=== PATIENT | female | born 1935 | race Caucasian/White ===

== ENCOUNTER 2018-06-10 10:27 | Inpatient (IN) ==
[2018-06-10] MEDS ORDERED: *HR* FentaNYL (PF) 100 MCG/2 ML VIAL IVP ONE (10:39)
[2018-06-10] MEDS ORDERED: 0.9 % Sodium Chloride 500 ML IVC ONE (10:39)
[2018-06-10] MEDS ORDERED: Ondansetron 4 MG/2 ML VIAL IVP ONE (10:39)
--- NOTE | 2018-06-10 10:43 | Emergency Department Note ---
Disposition Clinical Impression: Femur fracture, Acetabular fracture, Pubic ramus fracture Disposition: Admitted As Inpatient Condition: Fair General Adult HPI - General Chief complaint: ED Fall Stated complaint: ams Time Seen by Provider: 06/10/18 10:27 Source: EMS Limitations: altered mental status Nursing Notes Reviewed: Yes Vital Signs Reviewed: Yes - History of Present Illness Pain Scale: 10 - Related Data Home Medications Medication Instructions Recorded Confirmed Aspirin [Adult Aspirin] 81 mg PO DAILY 04/14/18 06/10/18 Cholecalciferol (Vitamin D3) 2,000 unit PO DAILY 04/14/18 06/10/18 [Vitamin D] Citalopram Hydrobromide 10 mg PO DAILY 04/14/18 06/10/18 [Citalopram HBr] Cyanocobalamin (B-12) [Vitamin B12] 2,000 mcg PO DAILY 04/14/18 06/10/18 Docusate Sodium [Dok] 100 mg PO DAILY 04/14/18 06/10/18 Ondansetron ODT [Zofran ODT] 4 mg PO BID PRN 04/14/18 06/10/18 Polyethylene Glycol 3350 [MiraLAX 1 scoop PO DAILY 04/14/18 06/10/18 Powder Bulk 17.9 Oz] RX: Acetaminophen [Acetaminophen 650 mg PO TID PRN 04/14/18 06/10/18 ER] Previous Rx's Medication Instructions Recorded RX: OxyCODONE/APAP 5/325 [Percocet 1 each PO Q6HR PRN 3 Days #12 04/14/18 5/325 MG] tablet Allergies Allergy/AdvReac Type Severity Reaction Status Date / Time acetaminophen Allergy Mild Nausea Verified 07/23/17 11:20 atorvastatin Allergy Hives Verified 07/23/17 08:28 ceftriaxone Allergy Hives Verified 07/23/17 08:28 codeine Allergy Hypertensio Verified 07/23/17 08:28 n Past Medical History - Past Medical History Medical history: Reports: DVT, dementia, diabetes, GERD, hyperlipidemia, hypertension, myocardial infarction, osteoporosis, pulmonary embolus, TIA Psychiatric history: Reports: no psych history - Social History Smoking Status: Never smoker Smokeless Tobacco Status: No Alcohol use: Reports: none Drug use: Reports: none Physical Exam - General Limitations: altered mental status General appearance: alert Course Vital Signs Temperature 97.5 F L 06/10/18 10:31 Pulse Rate 99 06/10/18 10:31 Respiratory Rate 20 06/10/18 10:31 Blood Pressure 93/49 06/10/18 10:31 O2 Sat by Pulse Oximetry 91 06/10/18 10:31 Temperature 97.5 F L 06/10/18 10:31 Pulse Rate 85 06/10/18 14:05 Respiratory Rate 16 06/10/18 14:05 Blood Pressure 119/60 06/10/18 14:05 O2 Sat by Pulse Oximetry 100 06/10/18 14:05 Oxygen Delivery Oxygen Delivery Nasal Cannula Medical Decision Making - MDM Narrative Medical decision making narrative: Chest X-Ray 06/10/18 10:37 IMPRESSION: 1. Stable chest x-ray with no active pulmonary disease. D/ / Bryn Blakely MD / Bryn Blakely MD Interpreting Provider: Bryn Blakely MD Femur X-Ray 06/10/18 10:37 IMPRESSION: 1. Acute traumatic displaced and overriding fracture of the mid femoral diaphysis. 2. Acute traumatic right pubic symphysis fracture. D/ / Bryn Blakely MD / Bryn Blakely MD Interpreting Provider: Bryn Blakely MD Pelvis X-Ray 06/10/18 10:37 IMPRESSION: 1. Acute traumatic right pubic symphysis fracture with vague lucency involving the acetabulum. I cannot exclude a nondisplaced right acetabular fracture. I would recommend CT scan for further evaluation. D/ / Bryn Blakely MD / Bryn Blakely MD Interpreting Provider: Bryn Blakely MD 1139 hrs.: Waiting on CT of her head and neck. 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 We will speak with orthopedics and hospitalist for admission. Then we will discuss immobilization of the femur. Chest X-Ray 06/10/18 10:37 IMPRESSION: 1. Stable chest x-ray with no active pulmonary disease. D/ / Bryn Blakely MD / Bryn Blakely MD Interpreting Provider: Bryn Blakely MD Femur X-Ray 06/10/18 10:37 IMPRESSION: 1. Acute traumatic displaced and overriding fracture of the mid femoral diaphysis. 2. Acute traumatic right pubic symphysis fracture. D/ / Bryn Blakely MD / Bryn Blakely MD Interpreting Provider: Bryn Blakely MD Pelvis X-Ray 06/10/18 10:37 IMPRESSION: 1. Acute traumatic right pubic symphysis fracture with vague lucency involving the acetabulum. I cannot exclude a nondisplaced right acetabular fracture. I would recommend CT scan for further evaluation. D/ / Bryn Blakely MD / Bryn Blakely MD Interpreting Provider: Bryn Blakely MD 1230 hrs.: Spoke with Dr. Kenney, he said to do a knee immobilizer and the prior to surgery today. Still waiting on head CT and neck x-ray Cervical Spine CT 06/10/18 10:36 IMPRESSION: 1. Patient motion minimally limits evaluation in a few areas. Within this limitation, no acute findings are identified in the cervical spine. 2. Mild to moderate cervical spine degenerative changes. 3. Bony demineralization. D/ / Raymond Salazar MD / Raymond Salazar MD Interpreting Provider: Raymond Salazar MD Head CT 06/10/18 10:36 IMPRESSION: 1. No acute intracranial abnormality. 2. Diffuse cerebral atrophy with chronic small vessel ischemic disease. D/ / Bryn Blakely MD / Bryn Blakely MD Interpreting Provider: Bryn Blakely MD Chest X-Ray 06/10/18 10:37 IMPRESSION: 1. Stable chest x-ray with no active pulmonary disease. D/ / Bryn Blakely MD / Bryn Blakely MD Interpreting Provider: Bryn Blakely MD Femur X-Ray 06/10/18 10:37 IMPRESSION: 1. Acute traumatic displaced and overriding fracture of the mid femoral diaphysis. 2. Acute traumatic right pubic symphysis fracture. D/ / Bryn Blakely MD / Bryn Blakely MD Interpreting Provider: Bryn Blakely MD Pelvis X-Ray 06/10/18 10:37 IMPRESSION: 1. Acute traumatic right pubic symphysis fracture with vague lucency involving the acetabulum. I cannot exclude a nondisplaced right acetabular fracture. I would recommend CT scan for further evaluation. D/ / Bryn Blakely MD / Bryn Blakely MD Interpreting Provider: Bryn Blakely MD 1327 hrs.: Orthopedics is seen the patient a department they are in a determine whether they can get her medically cleared today for surgery if not filled tomorrow. They spoke with family also. Patient's agreement with plan. We will switch from a long leg splint down to the knee immobilizer for comfort. - Lab Data Result diagrams: 06/10/18 10:38 06/10/18 10:38 Lab Results 06/10/18 06/10/18 Range/Units 10:38 10:38 WBC 13.4 H (4.3-11.1) K/mcL RBC 3.40 L (3.82-4.97) M/mcL Hgb 9.5 L (11.5-15.4) g/dL Hct 30.1 L (35.3-44.9) % MCV 88.5 (83.0-100.0) fL MCH 27.9 L (28.0-33.3) pg MCHC 31.6 (31.6-35.5) g/dL RDW 14.8 H (11.5-14.5) % Plt Count 175 (140-400) K/mcL MPV 10.5 (9.4-12.4) fL Immature Gran % 0.9 (0-4) % Seg Neutrophils % 78.7 % Lymphocytes % 12.4 % Monocytes % 7.2 % Eosinophils % 0.4 % Basophils % 0.4 % Neutrophils # 10.5 H (1.6-8.9) K/mcL Lymphocytes # 1.7 (0.6-4.6) K/mcL Monocytes # 1.0 (0.0-1.3) K/mcL Eosinophils # 0.1 (0.0-0.6) K/mcL Basophils # 0.1 (0.0-0.2) K/mcL Sodium 137 (136-145) mEq/L Potassium 4.7 (3.5-5.1) mEq/L Chloride 99 (98-107) mEq/L Carbon Dioxide 26 (23-29) mEq/L BUN 34 H (8-23) mg/dL Creatinine 1.38 H (0.60-1.20) mg/dL Est GFR ( Amer) 44 L (> 60) Est GFR (Non-Af Amer) 36 L (> 60) BUN/Creatinine Ratio 25 (6-26) Glucose 281 H (70-105) mg/dL Calculated Osmolality 302 H (280-300) Calcium 8.9 (8.6-10.3) mg/dL Magnesium 1.8 (1.6-2.6) mg/dL Attestation Statement - Attestation Attestation: This documentation is done with the assistance of Dragon dictation. Despite efforts made to ensure accuracy, there may be inaccuracies in kiss machine operator or spelling and typographical errors. I examined this patient and my medical decision-making was reviewed with the Resident Physician. I agree with the documented findings, disposition and treatment plan as described except to the extent set forth below. Patient seen and evaluated today on arrival with EMS and Dr. Guerrero, I agree with his evaluation and management plan, I supervised the care the patient's stay. Patient lives in assisted living. Medics said she is a to person left though. Waiting on family to confirm that. She fell at the detention last night. She says that she did lose consciousness. They transported her today after she had an episode of emesis. Also complaining of pain in her right thigh. Shows some bruising on her left hand which looks old. We will place an IV give her something for pain and nausea. Check labs. CT head neck x-ray her right femur and most likely she will need admission. We will also speak with forensic social worker here.
[2018-06-10 10:57] LABS: Basophils # 0.1 K/mcL (0.0-0.2); Basophils % 0.4 %; Eosinophils # 0.1 K/mcL (0.0-0.6); Eosinophils % 0.4 %; Hematocrit 30.1 % (35.3-44.9); Hemoglobin 9.5 g/dL (11.5-15.4); Immature Granulocytes % 0.9 % (0-4); Lymphocytes # 1.7 K/mcL (0.6-4.6); Lymphocytes % 12.4 %; Mean Corpuscular HGB Conc 31.6 g/dL (31.6-35.5); Mean Corpuscular Hemoglobin 27.9 pg (28.0-33.3); Mean Corpuscular Volume 88.5 fL (83.0-100.0); Mean Platelet Volume 10.5 fL (9.4-12.4); Monocytes % 7.2 %; Neutrophils # 10.5 K/mcL (1.6-8.9); Platelet Count 175 K/mcL (140-400); Red Cell Distribution Width 14.8 % (11.5-14.5); Segmented Neutrophils % 78.7 %
--- NOTE | 2018-06-10 11:15 | Emergency Department Note ---
Disposition Clinical Impression: Femur fracture Qualifiers: Encounter type: initial encounter Femur location: shaft Fracture type: closed Fracture morphology: unspecified fracture morphology Laterality: right Qualified Code(s): S72.301A - Unspecified fracture of shaft of right femur, initial en counter for closed fracture Acetabular fracture Qualifiers: Encounter type: initial encounter Sublocation of acetabulum: unspecified portion of acetabulum Fracture type: closed Fracture alignment: nondisplaced Laterality: right Qualified Code(s): S32.401A - Unspecified fracture of right acetabulum, initial encounter for closed fracture Pubic ramus fracture Qualifiers: Encounter type: initial encounter Fracture type: closed Laterality: right Qualified Code(s): S32.591A - Other specified fracture of right pubis, initial encounter for closed fracture Disposition: Admitted As Inpatient Condition: Fair Referrals: NONE,PCP [Primary Care Provider] - Forms: ED Satisfaction Letter Time of Disposition: 13:33 Fall HPI - General Chief Complaint: ED Fall Stated Complaint: ams Time Seen by Provider: 06/10/18 10:27 Source: EMS Mode of arrival: EMS Limitations: altered mental status Nursing Notes Reviewed: Yes Vital Signs Reviewed: Yes - History of Present Illness HPI Narrative: 82-year-old female presents to the emergency department via EMS from nursing facility where she is normally bed or chair bound and is the a 2 person assist normally. Yesterday patient apparently fell out of her chair they found her on the ground or unsure how long she had been there. Patient does have DNR CC according to the [facility] but due to the fall and her not acting normal they felt like she needed to come here for evaluation. They did not notice any injuries they noticed that she did vomit so they cleaned her up and called EMS this morning. Patient is normally bedbound and does not normally get up and walks was hard to do a full exam on her dip for that. Patient otherwise not having any complaints including fevers, chills, headache, blurry vision, neck pain, back pain, chest pain, shortness of breath, abdominal pain, changes in balance, pain with urination, pain or tingling going down the arms or legs or generalized weakness. - Related Data Home Medications Medication Instructions Recorded Confirmed Acetaminophen [Acetaminophen ER] 650 mg PO TID PRN 04/14/18 04/14/18 Aspirin [Adult Aspirin] 81 mg PO DAILY 04/14/18 04/14/18 Cholecalciferol (Vitamin D3) 2,000 unit PO DAILY 04/14/18 04/14/18 [Vitamin D] Citalopram Hydrobromide 10 mg PO DAILY 04/14/18 04/14/18 [Citalopram HBr] Cyanocobalamin (B-12) [Vitamin B12] 2,000 mcg PO DAILY 04/14/18 04/14/18 Docusate Sodium [Dok] 100 mg PO DAILY 04/14/18 04/14/18 Ondansetron ODT [Zofran ODT] 4 mg PO BID PRN 04/14/18 04/14/18 Polyethylene Glycol 3350 [MiraLAX 1 scoop PO DAILY 04/14/18 04/14/18 Powder Bulk 17.9 Oz] Previous Rx's Medication Instructions Recorded OxyCODONE/APAP 5/325 [Percocet 1 each PO Q6HR PRN 3 Days #12 04/14/18 5/325 MG] tablet Allergies Allergy/AdvReac Type Severity Reaction Status Date / Time acetaminophen Allergy Mild Nausea Verified 07/23/17 11:20 atorvastatin Allergy Hives Verified 07/23/17 08:28 ceftriaxone Allergy Hives Verified 07/23/17 08:28 codeine Allergy Hypertensio Verified 07/23/17 08:28 n All systems ED: reviewed and negative except as stated. Review of Systems: As Per HPI Fall PMH - Past Medical History Medical history: Reports: DVT, dementia, diabetes, GERD, hyperlipidemia, hypertension, myocardial infarction, osteoporosis, pulmonary embolus, TIA Psychiatric history: Reports: no psych history - Social History Smoking Status: Never smoker Alcohol use: Reports: none Drug use: Reports: none Physical Exam - General Limitations: altered mental status General appearance: alert - Head Head exam: atraumatic, normocephalic, normal inspection - Eye Eye exam: Present: normal appearance, PERRL, EOMI - ENT ENT exam: normal exam, normal oropharynx, mucous membranes moist - Neck Neck exam: Present: normal inspection, full ROM, trachea midline - Chest Chest inspection: Present: normal inspection, symmetric chest wall rise - Respiratory Respiratory exam: Present: normal lung sounds bilaterally - Cardiovascular Cardiovascular exam: Present: regular rate, normal rhythm, normal heart sounds - Abdominal Exam Abdominal exam: Present: soft, Non-Tender, normal bowel sounds. Absent: tenderness, distention, guarding, rebound, rigidity - Extremities Exam Extremities exam: Present: normal inspection, full ROM. Absent: tenderness, pedal edema - Expanded Lower Extremity Exam Hip/Pelvis exam: Present: full ROM, tenderness (Tenderness while palpating the right hip) Upper leg exam: Present: full ROM, deformity (Noticeable midshaft right humerus deformity.) Knee exam: Present: normal inspection, full ROM Lower leg exam: Present: normal inspection, full ROM Ankle exam: Present: normal inspection, full ROM Neurovascular/Tendon exam: Present: normal capillary refill. Absent: pulse deficit, motor deficit, sensory deficit, tendon deficit - Back Exam Back exam: Present: normal inspection, full ROM. Absent: tenderness - Neurological Exam Neurological exam: Present: alert - Expanded Neurological Exam Patient oriented to: Present: person, place, time Coma Scale Eye Opening: Spontaneous Coma Scale Motor Response: Localizes to Pain Coma Scale Verbal Response: Confused Coma Scale Total: 13 - Skin Skin exam: Present: warm, dry, intact, normal color Course Course Narrative: We will get a head CT, cervical neck CT as well as x-rays of the chest pelvis and right femur due to the deformity. Patient does have good pedal pulses bilaterally. We will also get basic labs including CBC, BMP, magnesium, uri nalysis we will place Ramirez catheter. Patient most likely will be admitted due to acute femur fracture. - Consultations Consultation #1: Spoke with the on-call orthopedist Dr. Kenney who said they will see the patient they want patient to be nothing by mouth they will consider taking the patient to the OR to fix her right femur. They did not want a hip CT at this time. They will come and see the patient. They did recommend admission they said patient did not need a splint in this place patient in knee immobilizer and should be fine. Time: 12:38 Vital Signs Temperature 97.5 F L 06/10/18 10:31 Pulse Rate 99 06/10/18 10:31 Respiratory Rate 20 06/10/18 10:31 Blood Pressure 93/49 06/10/18 10:31 O2 Sat by Pulse Oximetry 91 06/10/18 10:31 Temperature 97.5 F L 06/10/18 10:31 Pulse Rate 84 06/10/18 12:48 Respiratory Rate 17 06/10/18 12:48 Blood Pressure 104/50 06/10/18 12:48 O2 Sat by Pulse Oximetry 100 06/10/18 12:48 Oxygen Delivery Oxygen Delivery Nasal Cannula Fall - MDM Narrative Medical decision making narrative: 82-year-old female presents to the emergency department after a fall. Head CT and neck CT came back with no acute abnormalities. Due to the nose with d eformity in the right femur there was a fracture as well as a pubic symphysis as well as possible acetabular fracture. I spoke with orthopedics they said they will take patient to or either today or tomorrow and recommended admission. Did place patient in a knee immobilizer. We attempted to place Ramirez but is difficult due to the pain. We will attempt again prior to patient going to the floor. All other labs were normal. I spoke with the hospitalist Dr. Polo who agreed to admit the patient to their service. Patient is going to be admitted in stable condition. - Medical Records Medical records reviewed: Yes I reviewed the patient's medical records. - Lab Data Lab results reviewed: Yes I reviewed the patient's lab results. Result diagrams: 06/10/18 10:38 06/10/18 10:38 Lab Results 06/10/18 06/10/18 Range/Units 10:38 10:38 WBC 13.4 H (4.3-11.1) K/mcL RBC 3.40 L (3.82-4.97) M/mcL Hgb 9.5 L (11.5-15.4) g/dL Hct 30.1 L (35.3-44.9) % MCV 88.5 (83.0-100.0) fL MCH 27.9 L (28.0-33.3) pg MCHC 31.6 (31.6-35.5) g/dL RDW 14.8 H (11.5-14.5) % Plt Count 175 (140-400) K/mcL MPV 10.5 (9.4-12.4) fL Immature Gran % 0.9 (0-4) % Seg Neutrophils % 78.7 % Lymphocytes % 12.4 % Monocytes % 7.2 % Eosinophils % 0.4 % Basophils % 0.4 % Neutrophils # 10.5 H (1.6-8.9) K/mcL Lymphocytes # 1.7 (0.6-4.6) K/mcL Monocytes # 1.0 (0.0-1.3) K/mcL Eosinophils # 0.1 (0.0-0.6) K/mcL Basophils # 0.1 (0.0-0.2) K/mcL Sodium 137 (136-145) mEq/L Potassium 4.7 (3.5-5.1) mEq/L Chloride 99 (98-107) mEq/L Carbon Dioxide 26 (23-29) mEq/L BUN 34 H (8-23) mg/dL Creatinine 1.38 H (0.60-1.20) mg/dL Est GFR ( Amer) 44 L (> 60) Est GFR (Non-Af Amer) 36 L (> 60) BUN/Creatinine Ratio 25 (6-26) Glucose 281 H (70-105) mg/dL Calculated Osmolality 302 H (280-300) Calcium 8.9 (8.6-10.3) mg/dL Magnesium 1.8 (1.6-2.6) mg/dL - Radiology Data Radiology results reviewed: Yes I reviewed the patient's radiology results. - EKG Data EKG attestation: Yes I reviewed and interpreted this EKG. EKG results narrative: EKG done at 1039 review myself and attending shows sinus rhythm rate 94, KS 198, QRS 112, QTC 5-19. No acute ST changes no acute T-wave changes no other signs of ischemia. No heartstring, hypertrophy, heart block. No WPW/Brugada/HOCM. Otherwise this EKG is unchanged when compared with old one done 07/23/17
[2018-06-10 11:17] LABS: Calcium 8.9 mg/dL (8.6-10.3); Magnesium 1.8 mg/dL (1.6-2.6); Potassium 4.7 mEq/L (3.5-5.1)
[2018-06-10] MEDS ORDERED: 0.9 % Sodium Chloride 500 ML IVC PRN (13:55)
[2018-06-10] MEDS ORDERED: Naloxone 0.4 MG/ML INJ IVP PRN (14:04)
--- NOTE | 2018-06-10 14:15 | Internal Med History&Physical ---
Date of Encounter: 06/10/18 Time of Encounter: 13:40 Internal Medicine - H&P: HPI Chief complaint: fall Admitted From: Long-term Nursing Facility History of present illness: Ms. Childs is a 82 year old female with past medical history of dementia, CVA, CAD s/p CABG in 2004 and PCI few years later, s/p ICD, DM on diet control, presented from the nursing facility after an episode of fall. History is limited due to underlying dementia therefore further history was obtained from patient's daughter at bedside. According to her, patient had unwitnessed fall out of her chair and was found on ground. She is normally bed/chair bound and is 2 person assist normally. Patient can also have reasonable conversation with her daughter but she was slightly more confused than before hence was brought in to the ED They did not notice any obvious injuries but patient started complaining of generalized pain so EMS was called this morning. She is unable to tell me whether she had any prodromal symptoms. Daughter, who saw her last on 06/06, also states that patient had no focal complaints including fever/chills, chest pain, palpitation, SOB, orthopnea, PND, blurring of vision, or focal weakness/numbness. No change in speech or facial droop noted. In the ED, she was afebrile with borderline low BP. Labs showed leukocytosis of 13.4, creatinine 1.38 (baseline around 0.91), and normal electrolytes. Hb 9.5 which is close to her baseline of 10. CXR without acute cardiopulmonary process and EKG showed normal sinus rhythm with known LAFB and prolonged QTc. Other imaging studies showed displaced mid R femoral diaphysis fracture, R pubic symphysis fracture, and ?non-displaced R acetabular fracture. She was given 500ml of NS bolus and admitted for further management with orthopedic consult. Past Med Surg Social Fam HX - Past Medical History Source: obtained from family Medical history: DVT, dementia, diabetes, GERD, hyperlipidemia, hypertension, my ocardial infarction, osteoporosis, pulmonary embolus, TIA Additional medical history: anemia, insomnia Psychiatric history: no psych history - Past Surgical History Surgical History: coronary bypass (CABG) Additional surgical history: multiple bowel surgeries - Social History Smoking Status: Never smoker Smokeless Tobacco Status: No Alcohol use: none Drug use: none - Family History Mother Living Status: (unable to obtain due to mental status) Internal Medicine - H&P: Meds Acetaminophen [Acetaminophen ER] 650 mg PO TID PRN 04/14/18 [History] Aspirin [Adult Aspirin] 81 mg PO DAILY 04/14/18 [History] Cholecalciferol (Vitamin D3) [Vitamin D] 2,000 unit PO DAILY 04/14/18 [History] Citalopram Hydrobromide [Citalopram HBr] 10 mg PO DAILY 04/14/18 [History] Cyanocobalamin (B-12) [Vitamin B12] 2,000 mcg PO DAILY 04/14/18 [History] Docusate Sodium [Dok] 100 mg PO DAILY 04/14/18 [History] Ondansetron ODT [Zofran ODT] 4 mg PO BID PRN 04/14/18 [History] OxyCODONE/APAP 5/325 [Percocet 5/325 MG] 1 each PO Q6HR PRN 3 Days #12 tablet 04/14/18 [Rx] Polyethylene Glycol 3350 [MiraLAX Powder Bulk 17.9 Oz] 1 scoop PO DAILY 04/14/18 [History] Allergy/AdvReac Type Severity Reaction Status Date / Time acetaminophen Allergy Mild Nausea Verified 07/23/17 11:20 atorvastatin Allergy Hives Verified 07/23/17 08:28 ceftriaxone Allergy Hives Verified 07/23/17 08:28 codeine Allergy Hypertensio Verified 07/23/17 08:28 n ROS unobtainable: due to mental status All Systems PM: A 10-system review of systems was performed and is negative for pertinent findings except as documented above in the HPI. - Constitutional Vitals: Temp Pulse Resp BP Pulse Ox 97.5 F L 84 17 104/50 100 06/10/18 10:31 06/10/18 12:48 06/10/18 12:48 06/10/18 12:48 06/10/18 12:48 Exam: General: Alert and oriented to self but to place and time, not in acute distress. HEENT:EOM, pupils equal, round and reactive. Cardiovascular:Normal S1 & S2, No JVD. Pulse regular. Lungs: clear to auscultation, no wheezes/rales Abdomen:Soft, non-tender, no rigidity. Extremities: R groin and mid thigh tender on palpation, unable to appreciate obvious deformity. Neurovascular intact distally Neurological: grossly nonfocal Skin:Normal color, no rash, no lesions. Pulses:Carotid and radial pulses normal +2. Rest of the physical exam is non contributory Internal Med - H&P Results - Labs CBC & Chem 7: 06/10/18 10:38 06/10/18 10:38 Labs: Short CBC 06/10/18 Range/Units 10:38 WBC 13.4 H (4.3-11.1) K/mcL Hgb 9.5 L (11.5-15.4) g/dL Hct 30.1 L (35.3-44.9) % Plt Count 175 (140-400) K/mcL Neutrophils # 10.5 H (1.6-8.9) K/mcL BMP 06/10/18 10:38 Sodium 137 Potassium 4.7 Chloride 99 Carbon Dioxide 26 BUN 34 H Creatinine 1.38 H Glucose 281 H Calcium 8.9 - Impressions ITS Impressions Cervical Spine CT 06/10/18 10:36 IMPRESSION: 1. Patient motion minimally limits evaluation in a few areas. Within this limitation, no acute findings are identified in the cervical spine. 2. Mild to moderate cervical spine degenerative changes. 3. Bony demineralization. D/ / Raymond Salazar MD / Raymond Salazar MD Interpreting Provider: Raymond Salazar MD Head CT 06/10/18 10:36 IMPRESSION: 1. No acute intracranial abnormality. 2. Diffuse cerebral atrophy with chronic small vessel ischemic disease. D/ / Bryn Blakely MD / Bryn Blakely MD Interpreting Provider: Bryn Blakely MD Chest X-Ray 06/10/18 10:37 IMPRESSION: 1. Stable chest x-ray with no active pulmonary disease. D/ / Bryn Blakely MD / Bryn Blakely MD Interpreting Provider: Bryn Blakely MD Femur X-Ray 06/10/18 10:37 IMPRESSION: 1. Acute traumatic displaced and overriding fracture of the mid femoral diaphysis. 2. Acute traumatic right pubic symphysis fracture. D/ / Bryn Blakely MD / Bryn Blakely MD Interpreting Provider: Bryn Blakely MD Pelvis X-Ray 06/10/18 10:37 IMPRESSION: 1. Acute traumatic right pubic symphysis fracture with vague lucency involving the acetabulum. I cannot exclude a nondisplaced right acetabular fracture. I would recommend CT scan for further evaluation. D/ / Bryn Blakely MD / Bryn Blakely MD Interpreting Provider: Bryn Blakely MD - Assessment and plan (1) Femur fracture Current Visit: Yes Status: Acute Assessment and plan: CT finding as above, neurovascularly intact distally for ortho eval, probably require surgical intervention soon pre-op eval as below Qualifiers: Encounter type: initial encounter Femur location: shaft Fracture type: closed Fracture morphology: unspecified fracture morphology Laterality: right Qualified Code(s): S72.301A - Unspecified fracture of shaft of right femur, initial encounter for closed fracture (2) Pre-op evaluation Current Visit: Yes Status: Acute Assessment and plan: patient does not have any signs and symptoms suggestive of ACS, decompensated heart failure, or malignant arrhythmia (granted hx is somewhat limited) has history of ischemic cardiomyopathy with ?ICD insertion. No echo on file RCRI 2, risk of MACE 6.6%. Unable to determine METS moderate risk pt for moderate risk op Pt also has NICOLAS and leukocytosis with AMS concerning for potential infection would be reasonable to investigate and treat the above while obtaining echocardiogram to establish baseline cardiac function prior to op IVF for NICOLAS CXR did not show any acute cardiopulmonary process, would obtain UA to rule out UTI echocardiogram, if abnormal, will consult cardiology (3) Pubic ramus fracture Current Visit: Yes Status: Acute Assessment and plan: per ortho Qualifiers: Encounter type: initial encounter Fracture type: closed Laterality: right Qualified Code(s): S32.591A - Other specified fracture of right pubis, initial encounter for closed fracture (4) Acetabular fracture Current Visit: Yes Status: Acute Assessment and plan: per ortho Qualifiers: Encounter type: initial encounter Sublocation of acetabulum: unspecified portion of acetabulum Fracture type: closed Fracture alignment: nondisplaced Laterality: right Qualified Code(s): S32.401A - Unspecified fracture of right acetabulum, initial encounter for closed fracture (5) NICOLAS (acute kidney injury) Current Visit: Yes Status: Acute Assessment and plan: Cr 1.38, baseline 0.9-1.0 check CPK given history of fall IVF Urinalysis (6) CAD (coronary artery disease) Current Visit: Yes Status: Chronic Assessment and plan: resume home meds, intolerant to statin but unsure why patient is not on bb echo as above Qualifiers: Coronary Disease-Associated Artery/Lesion type: bypass graft [place] vs. transplanted heart: [place] heart Associated angina: angina presence unspecified Qualified Code(s): I25.810 - Atherosclerosis of coronary artery bypass graft(s) without angina pectoris (7) Leukocytosis Current Visit: Yes Status: Acute Assessment and plan: can be reactive from fall and fracture but with change in mental status, concerning for infection CXR as above urinalysis, will treat accordingly if +ve Qualifiers: Leukocytosis type: unspecified Qualified Code(s): D72.829 - Elevated white blood cell count, unspecified (8) DVT prophylaxis Current Visit: Yes Status: Acute Assessment and plan: SQ heparin - Time Spent With Patient Total time spent is greater than 50% in coordination of care (as documented) at patient's floor/unit and/or counseling patient:
--- NOTE | 2018-06-10 14:26 | Orthopedic Consult Note ---
Date of Encounter: 06/10/18 Time of Encounter: 13:00 Assessment and Plan (1) Femur fracture Current Visit: Yes Status: Acute Patient is a long-term resident at [facility], and recently became 2 person assist, [id number] mobility only secondary to increase in fall risk and decreased cognitive abilities. Both conservative and surgical options discussed with jasmin mukesh and her POA - Maribell. With conservative management, patient will be completely non-ambulatory for unknown amount of time, have continued pain, and because of instability of fracture, she is at risk for further migration of fracture with the potential for an open fracture. Surgical management, at this time is recommended secondary to instability of fracture, pain control, and allow for better mangement while in the bed-bound status. Patient will be high risk from anesthesia standpoint, and further cognitive declined discussed with the POA. We will plan to perform a Right Femur IM nailing with on 06/11/18, as this will be the least invasive surgical option for the patient. Cardio consulted secondary to high cardiac risks involved. Will appreciate their input, Echocardiogram ordered. Anesthesia consulted. Patient to be admitted to hospitalist service, for further pre-operative optimization and risk stratification. Pain management needed, Place in knee immobilizer, no knee motion. ICE frequently. Order CBC, BMP, PT/INR. She has new NICOLAS as well, to be followed by hospitalist. NWB. Needs anderson catheter placed. Consent reviewed and discussed with the patient and POA. Consent signed. Qualifiers: Encounter type: initial encounter Femur location: shaft Fracture type: closed Fracture morphology: unspecified fracture morphology Laterality: right Qualified Code(s): S72.301A - Unspecified fracture of shaft of right femur, initial encounter for closed fracture (2) Acetabular fracture Current Visit: Yes Status: Acute Discussed and reviewed imaging with - plan to continue to monitor. No CT at this time, as it will not change current treatment plan per Qualifiers: Encounter type: initial encounter Sublocation of acetabulum: unspecified portion of acetabulum Fracture type: closed Fracture alignment: nondisplaced Laterality: right Qualified Code(s): S32.401A - Unspecified fracture of right acetabulum, initial encounter for closed fracture (3) Pubic ramus fracture Current Visit: Yes Status: Acute Discussed and reviewed imaging with Will plan to continue with conservative management. Plan to follow precautions for femur fracture. Qualifiers: Encounter type: initial encounter Fracture type: closed Laterality: right Qualified Code(s): S32.591A - Other specified fracture of right pubis, initial encounter for closed fracture History of Present Illness Chief complaint: Fall from wheelchair, Right Femur Fracture HPI: Ms. Childs is a 82 year old female, with a history of DVT, dementia, HTN, MN, PE, TIA, CAD with open heart surgery, presented to [facility] ED from nursing faci lity after a unwitnessed fall that occured last night. Poor historian, history obtained from POA and records. Patient is a retirement resident in assisted living facility. Patient was put back to bed after fall, and nursing noted this AM her pain was worse. XRAYS of right lower extremity revealed: Mid-shaft, displaced femur fracture, pubic symphysis fracture, possible nondisplaced acetabular fracture. Patient is difficult to arouse and drowsy, likely from pain medication. Most of her history was obtained from records, and POA - Daughter Maribell. Pain is controlled currently with pain medication, worsens with any movement of the hip, knee or ankle. Patient admits to radiation of pain down entirety of lower leg. She denies N/T. She denies LOC, unclear if she hit her head. She had a previous Left hip fracture in 2013 with IM nailing, and has been ambulating minimally with walker, and wheelchair since then. She had been transferring herself from her chair to her wheelchair, but in April, she started having increase in her fall frequency. She is now a 2 person assist, [id number] mobility only, due to her high fall risk Leg appears shortened and rotated. Swelling to anterior thigh noted. Abrasions to knee minimal. No indication for open fracture. No calf tenderness. ROM limited. NV intact. Place in knee immobilizer. Pain management needed. DVT prophylaxis. Cervical Spine CT 06/10/18 10:36 IMPRESSION: 1. Patient motion minimally limits evaluation in a few areas. Within this limitation, no acute findings are identified in the cervical spine. 2. Mild to moderate cervical spine degenerative changes. 3. Bony demineralization. D/ / Raymond Salazar MD / Raymond Salazar MD Interpreting Provider: Raymond Salazar MD Head CT 06/10/18 10:36 IMPRESSION: 1. No acute intracranial abnormality. 2. Diffuse cerebral atrophy with chronic small vessel ischemic disease. D/ / Bryn Blakely MD / Bryn Blakely MD Interpreting Provider: Bryn Blakely MD Chest X-Ray 06/10/18 10:37 IMPRESSION: 1. Stable chest x-ray with no active pulmonary disease. D/ / Bryn Blakely MD / Bryn Blakely MD Interpreting Provider: Bryn Blakely MD Femur X-Ray 06/10/18 10:37 IMPRESSION: 1. Acute traumatic displaced and overriding fracture of the mid femoral diaphysis. 2. Acute traumatic right pubic symphysis fracture. D/ / Bryn Blakely MD / Bryn Blakely MD Interpreting Provider: Bryn Blakely MD Pelvis X-Ray 06/10/18 10:37 IMPRESSION: 1. Acute traumatic right pubic symphysis fracture with vague lucency involving the acetabulum. I cannot exclude a nondisplaced right acetabular fracture. I would recommend CT scan for further evaluation. D/ / Bryn Blakely MD / Bryn Blakely MD Interpreting Provider: Bryn Blakely MD Patient is a long-term resident at [facility], and recently became 2 person assist, [id number] mobility only secondary to increase in fall risk and decreased cognitive abilities. Both conservative and surgical options discussed with patient and her POA - Maribell. With conservative management, patient will be completely non-ambulatory for unknown amount of time, have continued pain, and because of instability of fracture, she is at risk for further migration of fracture with the potential for an open fracture. Surgical management, at this time is recommended secondary to instability of fracture, pain control, and allow for better mangement while in the bed-bound status. Patient will be high risk from anesthesia standpoint, and further cognitive declined discussed with the POA. We will plan to perform a Right Femur IM nailing with on 06/11/18, as this will be the least invasive surgical option for the patient. Cardio consulted secondary to high cardiac risks involved. Will appreciate their input, Echocardiogram ordered. Anesthesia consulted. Patient to be admitted to hospitalist service, for further pre-operative optimization and risk stratification. Pain management needed, Place in knee immobilizer, no knee motion. ICE frequently. Order CBC, BMP, PT/INR. She has new NICOLAS as well, to be followed by hospitalist. NWB. Needs anderson catheter placed. Consent reviewed and discussed with the patient and POA. Consent signed. Past Med Surg Social Fam HX - Past Medical History Medical history: DVT, dementia, diabetes, GERD, hyperlipidemia, hypertension, myocardial infarction, osteoporosis, pulmonary embolus, TIA Additional medical history: anemia, insomnia, Psychiatric history: no psych history - Past Surgical History Additional surgical history: multiple bowel - Social History Smoking Status: Never smoker Smokeless Tobacco Status: No Alcohol use: none Drug use: none - Family History Mother Living Status: Medications and Allergies Acetaminophen [Acetaminophen ER] 650 mg PO TID PRN 04/14/18 [History] Aspirin [Adult Aspirin] 81 mg PO DAILY 04/14/18 [History] Cholecalciferol (Vitamin D3) [Vitamin D] 2,000 unit PO DAILY 04/14/18 [History] Citalopram Hydrobromide [Citalopram HBr] 10 mg PO DAILY 04/14/18 [History] Cyanocobalamin (B-12) [Vitamin B12] 2,000 mcg PO DAILY 04/14/18 [History] Docusate Sodium [Dok] 100 mg PO DAILY 04/14/18 [History] Ondansetron ODT [Zofran ODT] 4 mg PO BID PRN 04/14/18 [History] OxyCODONE/APAP 5/325 [Percocet 5/325 MG] 1 each PO Q6HR PRN 3 Days #12 tablet [Rx] Polyethylene Glycol 3350 [MiraLAX Powder Bulk 17.9 Oz] 1 scoop PO DAILY 04/14/18 [History] Allergy/AdvReac Type Severity Reaction Status Date / Time acetaminophen Allergy Mild Nausea Verified 07/23/17 11:20 atorvastatin Allergy Hives Verified 07/23/17 08:28 ceftriaxone Allergy Hives Verified 07/23/17 08:28 codeine Allergy Hypertensio Verified 07/23/17 08:28 n ROS unobtainable: due to mental status All Systems Reviewed: The remainder of the systems were reviewed and are negative - Cardiovascular Cardiovascular: as per HPI - Respiratory Respiratory: as per HPI - Musculoskeletal Musculoskeletal: as per HPI Physical Exam - Constitutional Vitals: Temp Pulse Resp BP Pulse Ox 97.5 F L 84 17 104/50 100 06/10/18 10:31 06/10/18 12:48 06/10/18 12:48 06/10/18 12:48 06/10/18 12:48 General appearance IM: A&O X 1, mild distress, pleasant, thin - Fracture right femur Appearance: swelling Compartments: soft Distal extremity neurovascularly intact: Yes Proximal joint involvement: Yes Distal joint involvement: No Results - Labs Result Diagrams: 06/11/18 05:35 06/11/18 05:35 Labs: Abnormal lab results WBC 13.4 K/mcL (4.3-11.1) H 06/10/18 10:38 RBC 3.40 M/mcL (3.82-4.97) L 06/10/18 10:38 Hgb 9.5 g/dL (11.5-15.4) L 06/10/18 10:38 Hct 30.1 % (35.3-44.9) L 06/10/18 10:38 MCH 27.9 pg (28.0-33.3) L 06/10/18 10:38 RDW 14.8 % (11.5-14.5) H 06/10/18 10:38 Neutrophils # 10.5 K/mcL (1.6-8.9) H 06/10/18 10:38 BUN 34 mg/dL (8-23) H 06/10/18 10:38 Creatinine 1.38 mg/dL (0.60-1.20) H 06/10/18 10:38 Est GFR ( Amer) 44 (> 60) L 06/10/18 10:38 Est GFR (Non-Af Amer) 36 (> 60) L 06/10/18 10:38 Glucose 281 mg/dL (70-105) H 06/10/18 10:38 Calculated Osmolality 302 (280-300) H 06/10/18 10:38 H & H 06/10/18 Range/Units 10:38 Hgb 9.5 L (11.5-15.4) g/dL Hct 30.1 L (35.3-44.9) % All other labs normal. - Diagnostic results Hip x-ray: report reviewed, image reviewed Knee x-ray: report reviewed, image reviewed Cervical AP/lateral x-ray: report reviewed, image reviewed CT scan - cervical: report reviewed, image reviewed Consult Discharge Plan - Plan Referrals: NONE,PCP [Primary Care Provider] -
[2018-06-10] MEDS: *HR* Heparin 5,000 UNIT/ML VIAL SQ SCH (17:21)
[2018-06-10] MEDS: 0.9 % Sodium Chloride 1,000 ML IVC SCH (17:22)
[2018-06-10] MEDS: OXYCODONE Oral CONC 10 MG/0.5 ML ORAL.SYG SL PRN ×2 (17:23→22:29)
[2018-06-10] MEDS ORDERED: Perflutren Lipid Microsphere 1.3 ML in 0.9 % Sodium Chloride 8.7 ML IVP ONE (18:18)
--- NOTE | 2018-06-10 22:19 | Anesthesia Evaluation PreOp ---
Date of Encounter: 06/10/18 Time of Encounter: 22:17 - Past History Planned Operation: RIGHT FEMUS IM NAIL Cardiac History: [place], HTN, Hyperlipidemia, Arrhythmia (BIFASCIULAR BLOCK, COMLETE HEART BLOCK, SYNCOPY), Cardiac Surgery (CABG 2004), Cardiac Stent, Pacemaker/ICD (2015: [employer] PACEMAKER, DUAL CHAMBER, AAIR,) RECEIVER BULK SYSTEM History: Other (DEMENTIA, BED/CHAIR BOUND) Other Medical History: Renal (NICOLAS), Diabetes Type II (DIET CONTROLLED), GERD, Other (ANEMIA, UNWITTENESED FALL, RIGHT FEMUR SHAFT FX, RIGHT SYMPHYSIS PUBIS FX , ? RIGHT ACETABULAR FX) Alcohol Use: none Drug use: none Medications and Allergies Acetaminophen [Acetaminophen ER] 650 mg PO TID PRN 04/14/18 [History] Aspirin [Adult Aspirin] 81 mg PO DAILY 04/14/18 [History] Cholecalciferol (Vitamin D3) [Vitamin D] 2,000 unit PO DAILY 04/14/18 [History] Citalopram Hydrobromide [Citalopram HBr] 10 mg PO DAILY 04/14/18 [History] Cyanocobalamin (B-12) [Vitamin B12] 2,000 mcg PO DAILY 04/14/18 [History] Docusate Sodium [Dok] 100 mg PO DAILY 04/14/18 [History] Ondansetron ODT [Zofran ODT] 4 mg PO BID PRN 04/14/18 [History] OxyCODONE/APAP 5/325 [Percocet 5/325 MG] 1 each PO Q6HR PRN 3 Days #12 tablet 04/14/18 [Rx] Polyethylene Glycol 3350 [MiraLAX Powder Bulk 17.9 Oz] 1 scoop PO DAILY 04/14/18 [History] Allergy/AdvReac Type Severity Reaction Status Date / Time acetaminophen Allergy Mild Nausea Verified 07/23/17 11:20 atorvastatin Allergy Hives Verified 07/23/17 08:28 ceftriaxone Allergy Hives Verified 07/23/17 08:28 codeine Allergy Hypertensio Verified 07/23/17 08:28 n - Meds/Allergy Pre-op Review Medications Reviewed: Yes Allergies Reviewed: Yes Beta Blockers on Current Med List: No Anesthesia Results - Labs 06/10/18 10:38 06/10/18 10:38 Laboratory Tests 06/10/18 10:38 Creatinine 1.38 H Est GFR (Non-Af Amer) 36 L Calcium 8.9 Magnesium 1.8 - Imaging Additional studies: 2013 STRESS TEST: Perfusion imaging was positive for ischemia. There is a medium sized partially fixed but overall reversible perfusion defect which is moderate in severity in the basal inferolateral segment wall suggestive of ischemia. Pharmacologic ECG was non diagnostic for ischemia. Patient had no chest pain with stress. Normal hemodynamic response. No arrhythmias noted with stress. Gated EF = 76%. The LV is not dilated. There is no evidence of TID. TID ratio 0.88. 09/2013 [facility] - See Report Anesthesia Exam Vital Signs/O2 Sat/Glucose, Most Recent Temp Pulse Resp BP Pulse Ox 97.4 F L 81 14 92/56 96 06/10/18 19:39 06/10/18 19:39 06/10/18 19:39 06/10/18 22:09 06/10/18 20:04 Blood Glucose* 258 Weight: 52 kg - BMI 23 NPO (# of Hours): NPO >MN - HEENT Mallampati: I Teeth: Missing Oral Opening: Greater than 3 - RECEIVER BULK SYSTEM LOC: Confused, Disoriented - Cardiac Rhythm: Regular - Pulmonary Breath Sounds: bilateral Clear Respiratory Effort: Symmetrical Anesthesia Assess/Plan ASA Score: 4 Anes Supervising Prov Stmt: PATIENT WITH DEMENTIA. HALF-WAY. HISTORY FROM CHART REVIEW. ATTEMPTED, BUT UNABLE TO GET HOLD OF DAUGHTER. NEED PACEMAKER INTERROGATION.
[2018-06-11 02:34] LABS: Bilirubin,Urine Small (Negative); Blood,Urine Negative (Negative); Clarity,Urine Cloudy (Clear); Color,Urine Yellow (Yellow); Glucose,Urine (UA) Normal (Normal); Ketones,Urine Negative (Negative); Leukocyte Esterase,Urine Negative (Negative); Nitrite,Urine Negative (Negative); PH,Urine 5.5 pH Units (5.0-8.0); Protein,Urine 30 mg/dL (Neg-Trace); Specific Gravity,Urine 1.018 (1.010-1.025); Urobilinogen,Urine Normal (Normal)
[2018-06-11 02:36] LABS: Bacteria,Urine Moderate per hpf (None-Few); Hyaline Casts,Urine Few per lpf (None-Few); Squamous Epithelial Cell,Urine Many per lpf (None-Few)
--- NOTE | 2018-06-11 02:39 | Electrocardiograph Report ---
[facility] [employer] Test Date: 2018-06-10 Pat Name: Sanjuanita Childs Department: [id number] Room: 3A12 Gender: F [employer] Ref[employer] Supervisor: : [id number] Requested By: Antonio Guerrero Order Number: [id number] Reading MD: Robin Kirk Measurements Intervals [place] Rate: 94 P: 54 FL: 198 QRS: -59 QRSD: 112 T: 10 QT: 415 QTc: 519 Interpretive Statements Sinus rhythm Left anterior fascicular block Electronically Signed On 06-11-2018 2:37:49 EST by Robin Kirk
[2018-06-11 02:41] LABS: Yeast,Urine Many per hpf (None Seen)
[2018-06-11] MEDS: 0.9 % Sodium Chloride 1,000 ML IVC SCH (05:01)
[2018-06-11] MEDS: *HR* Heparin 5,000 UNIT/ML VIAL SQ SCH ×2 (05:03→19:07)
--- NOTE | 2018-06-11 06:24 | Orthopedics Progress Note ---
Date of Encounter: 06/11/18 Time of Encounter: 06:23 Subjective Interval history: Patient seen this morning displaced right femur fracture issues and non- ambulator but fracture displaced anteriorly concern for soft tissue damage. Plan for right femur open reduction intramedullary nail fixation. Objective Vital signs: Vital Signs Temp Pulse Resp BP Pulse Ox 06/11/18 03:55 98.7 F 83 16 97/58 99 06/10/18 23:35 98.4 F 83 16 111/65 100 06/10/18 22:09 92/56 06/10/18 20:44 90/53 06/10/18 20:04 96 06/10/18 19:39 97.4 F L 81 14 77/44 96 06/10/18 17:36 96 06/10/18 14:05 85 16 119/60 100 06/10/18 12:48 84 17 104/50 100 06/10/18 11:42 91 24 103/60 100 06/10/18 10:31 97.5 F L 99 20 93/49 91 Intake and Output 06/10/18 06/10/18 06/11/18 15:59 23:59 07:59 Intake Total 500 / 500 500 / 500 1000 / 1000 Output Total 0 / 0 150 / 150 Balance 500 / 500 500 / 500 850 / 850 Intake: IV Fluids 500 / 500 500 / 500 1000 / 1000 0.9 % Sodium Chloride 1,000 ML 1000 / 1000 @ 75 mls/hr IVC .[id number] [place] Rx #:[id number] 0.9 % Sodium Chloride 500 ML @ 500 / 500 500 / 500 1000 mls/hr IVC .Q30M PRN Rx#: [id number] Oral 0 / 0 0 / 0 Output: Urine 0 / 0 Catheter 0 / 0 150 / 150 Urethral (Ramirez) 100 / 100 Other: Meal Dinner Percent of Meal Consumed 20% # Urine Diapers 1 Weight 52.277 kg 56.7 kg Blood Glucose* 258 123 Patient Weight 06/11/18 23:59 Weight 56.7 kg - Labs CBC & BMP: 06/10/18 10:38 06/10/18 10:38 Labs: Abnormal lab results WBC 13.4 K/mcL (4.3-11.1) H 06/10/18 10:38 RBC 3.40 M/mcL (3.82-4.97) L 06/10/18 10:38 Hgb 9.5 g/dL (11.5-15.4) L 06/10/18 10:38 Hct 30.1 % (35.3-44.9) L 06/10/18 10:38 MCH 27.9 pg (28.0-33.3) L 06/10/18 10:38 RDW 14.8 % (11.5-14.5) H 06/10/18 10:38 Neutrophils # 10.5 K/mcL (1.6-8.9) H 06/10/18 10:38 BUN 34 mg/dL (8-23) H 06/10/18 10:38 Creatinine 1.38 mg/dL (0.60-1.20) H 06/10/18 10:38 Est GFR ( Amer) 44 (> 60) L 06/10/18 10:38 Est GFR (Non-Af Amer) 36 (> 60) L 06/10/18 10:38 Glucose 281 mg/dL (70-105) H 06/10/18 10:38 POC Glucose 258 mg/dL (70-99) H 06/10/18 10:33 Calculated Osmolality 302 (280-300) H 06/10/18 10:38 Creatine Kinase 454 Units/L (30-223) H 06/10/18 10:38 Urine Clarity Cloudy (Clear) A 06/11/18 02:15 Urine Protein 30 mg/dL (Neg-Trace) H 06/11/18 02:15 Urine Bilirubin Small (Negative) H 06/11/18 02:15 Urine Microscopic RBC 3-5 per hpf (0-3) H 06/11/18 02:15 Urine Microscopic WBC 5-15 per hpf (0-3) H 06/11/18 02:15 Ur Squamous Epith Cells Many per lpf (None-Few) H 06/11/18 02:15 Urine Bacteria Moderate per hpf (None-Few) H 06/11/18 02:15 Urine Yeast Many per hpf (None Seen) H 06/11/18 02:15 Consult Discharge Plan - Plan Referrals: NONE,PCP [Primary Care Provider] -
[2018-06-11 06:44] LABS: INR 1.1; Prothrombin Time 12.3 Seconds (9.4-12.1)
[2018-06-11 06:48] LABS: Basophils % 0.4 %; Eosinophils # 0.3 K/mcL (0.0-0.6); Eosinophils % 3.8 %; Hematocrit 24.1 % (35.3-44.9); Immature Granulocytes % 0.4 % (0-4); Lymphocytes # 1.7 K/mcL (0.6-4.6); Lymphocytes % 22.6 %; Mean Corpuscular HGB Conc 31.1 g/dL (31.6-35.5); Mean Corpuscular Hemoglobin 28.4 pg (28.0-33.3); Mean Corpuscular Volume 91.3 fL (83.0-100.0); Monocytes # 0.7 K/mcL (0.0-1.3); Monocytes % 9.3 %; Neutrophils # 4.7 K/mcL (1.6-8.9); Platelet Count 125 K/mcL (140-400); Red Blood Count 2.64 M/mcL (3.82-4.97); Segmented Neutrophils % 63.5 %
[2018-06-11 06:56] LABS: Magnesium 1.8 mg/dL (1.6-2.6); Potassium 4.5 mEq/L (3.5-5.1)
[2018-06-11 07:07] LABS: Hemoglobin 7.5 g/dL (11.5-15.4)
[2018-06-11] MEDS ORDERED: Aspirin Enteric Coated 81 MG Tablet PO SCH (09:00)
[2018-06-11] MEDS ORDERED: Cyanocobalamin (B-12) 1,000 MCG TABLET PO SCH (09:00)
[2018-06-11] MEDS ORDERED: Cholecalciferol (D-3) 1,000 UNIT TABLET PO SCH (09:00)
--- NOTE | 2018-06-11 09:17 | Internal Med Progress Note ---
Hospitalist Progress Note - Encounter Date of Encounter: 06/11/18 Time of Encounter: 09:14 - Subjective Interval History: Patient seen and examined this morning. No acute overnight events. BP on lower end. Patient is confused only oriented to self. Cannot offer coherent complain. Occasionally tearful. - Exam Vitals: Temp Pulse Resp BP Pulse Ox 98.0 F 72 15 95/56 100 06/11/18 07:18 06/11/18 07:18 06/11/18 07:18 06/11/18 07:18 06/11/18 07:18 Exam: General: Alert and oriented to self but to place and time, not in acute distress. Cardiovascular:Normal S1 & S2, No JVD. Pulse regular. Lungs: clear to auscultation, no wheezes/rales Abdomen:Soft, non-tender, BS present Extremities: R groin and mid thigh tender on palpation, unable to appreciate obvious deformity. Neurovascular intact distally Neurological: grossly nonfocal Pulses:Carotid and radial pulses normal +2. Pysch: confused - Assessment and Plan (1) Femur fracture Current Visit: Yes Status: Acute (2) Acetabular fracture Current Visit: Yes Status: Acute (3) Pubic ramus fracture Current Visit: Yes Status: Acute (4) CAD (coronary artery disease) Current Visit: Yes Status: Chronic (5) NICOLAS (acute kidney injury) Current Visit: Yes Status: Acute (6) Leukocytosis Current Visit: Yes Status: Acute (7) Pre-op evaluation Current Visit: Yes Status: Acute (8) DVT prophylaxis Current Visit: Yes Status: Acute - Summary of Assessment and Plan Summary of Assessment and Plan: Femur fracture/Pubic ramus/acetabular fracture - CT finding as above, neurovascularly intact distally - Plan for right femur open reduction intramedullary nail fixation per orthopedics Pre-op evaluation - patient does not have any signs and symptoms suggestive of ACS, decompensated heart failure, or arrhythmia. - History of ischemic cardiomyopathy with ICD insertion. - RCRI 2, risk of MACE 6.6%. Unable to determine METS - moderate risk pt for moderate risk op - c/u ECHO TTE. Cardiology consulted Anemia - admitted with 9.5(around baseline this year). now 7.5. Likely related to rehydration - Monitor - Type and screen NICOLAS - Cr 1.38, baseline 0.9-1.0 - elevated CK of 454 - Likely prerenal vs toxin mediated - Improving with IVF. - c/w IVF. will give 500 cc of Bolus. CAD - resume home meds, intolerant to statin but unsure why patient is not on bb echo as above Leukocytosis - Likely reactive - now resolved - CXR unremarkable - Urinalysis abnormal but poor sample. - Will hold of antibiotics for now. DVT prophylaxis - c/w SQ heparin - Time Spent with Patient Total time spent is greater than 50% in coordination of care (as documented) at patient's floor/unit and/or counseling patient: Internal Medicine: Result - Labs CBC & Chem 7: 06/11/18 05:35 06/11/18 05:35 Labs: Short CBC 06/10/18 06/11/18 Range/Units 10:38 05:35 WBC 13.4 H 7.4 (4.3-11.1) K/mcL Hgb 9.5 L 7.5 L D (11.5-15.4) g/dL Hct 30.1 L 24.1 L (35.3-44.9) % Plt Count 175 125 L (140-400) K/mcL Neutrophils # 10.5 H 4.7 (1.6-8.9) K/mcL BMP 06/10/18 06/11/18 10:38 05:35 Sodium 137 139 Potassium 4.7 4.5 Chloride 99 106 Carbon Dioxide 26 28 BUN 34 H 35 H Creatinine 1.38 H 1.25 H Glucose 281 H 124 H Calcium 8.9 8.0 L Urine 06/11/18 Range/Units 02:15 Urine Color Yellow (Yellow) Urine Clarity Cloudy A (Clear) Urine pH 5.5 (5.0-8.0) pH Units Ur Specific [place] 1.018 (1.010-1.025) Urine Protein 30 H (Neg-Trace) mg/dL Urine Glucose (UA) Normal (Normal) mg/dL - ABG Interpretation ABG results: PT/INR, D-dimer PT 12.3 Seconds (9.4-12.1) H 06/11/18 05:35 - Impressions Impressions Cervical Spine CT 06/10/18 10:36 IMPRESSION: 1. Patient motion minimally limits evaluation in a few areas. Within this limitation, no acute findings are identified in the cervical spine. 2. Mild to moderate cervical spine degenerative changes. 3. Bony demineralization. D/ / Raymond Salazar MD / Raymond Salazar MD Interpreting Provider: Raymond Salazar MD Head CT 06/10/18 10:36 IMPRESSION: 1. No acute intracranial abnormality. 2. Diffuse cerebral atrophy with chronic small vessel ischemic disease. D/ / Bryn Blakely MD / Bryn Blakely MD Interpreting Provider: Bryn Blakely MD Chest X-Ray 06/10/18 10:37 IMPRESSION: 1. Stable chest x-ray with no active pulmonary disease. D/ / Bryn Blakely MD / Bryn Blakely MD Interpreting Provider: Bryn Blakely MD Femur X-Ray 06/10/18 10:37 IMPRESSION: 1. Acute traumatic displaced and overriding fracture of the mid femoral diaphysis. 2. Acute traumatic right pubic symphysis fracture. D/ / Bryn Blakely MD / Bryn Blakely MD Interpreting Provider: Bryn Blakely MD Pelvis X-Ray 06/10/18 10:37 IMPRESSION: 1. Acute traumatic right pubic symphysis fracture with vague lucency involving the acetabulum. I cannot exclude a nondisplaced right acetabular fracture. I would recommend CT scan for further evaluation. D/ / Bryn Blakely MD / Bryn Blakely MD Interpreting Provider: Bryn Blakely MD Consult Discharge Plan - Plan Referrals: NONE,PCP [Primary Care Provider] - (1) Femur fracture Qualifiers: Encounter type: initial encounter Femur location: shaft Fracture type: closed Fracture morphology: unspecified fracture morphology Laterality: right Qualified Code(s): S72.301A - Unspecified fracture of shaft of right femur, initial encounter for closed fracture (2) Acetabular fracture Qualifiers: Encounter type: initial encounter Sublocation of acetabulum: unspecified portion of acetabulum Fracture type: closed Fracture alignment: nondisplaced Laterality: right Qualified Code(s): S32.401A - Unspecified fracture of right acetabulum, initial encounter for closed fracture (3) Pubic ramus fracture Qualifiers: Encounter type: initial encounter Fracture type: closed Laterality: right Qualified Code(s): S32.591A - Other specified fracture of right pubis, initial encounter for closed fracture (4) CAD (coronary artery disease) Qualifiers: Coronary Disease-Associated Artery/Lesion type: bypass graft [place] vs. transplanted heart: hoh heart Associated angina: angina presence unspecified Qualified Code(s): I25.810 - Atherosclerosis of coronary artery bypass graft(s) without angina pectoris (6) Leukocytosis Qualifiers: Leukocytosis type: unspecified Qualified Code(s): D72.829 - Elevated white blood cell count, unspecified
[2018-06-11] MEDS ORDERED: 0.9 % Sodium Chloride 500 ML IVC ONE (09:29)
--- NOTE | 2018-06-11 09:45 | Cardiology Consult Note ---
Addendum entered and electronically signed by Colin Peterson MD 06/11/18 13:32: I examined this patient and my medical decision-making was reviewed with the Resident Physician. I agree with the documented findings, disposition and treatment plan as described except to the extent set forth below. A/P: Preop evaluation Femur/pubic ramus fracture sp PPM Acceptable intermediate CV risk for intermediate risk surgery. EF normal. PPM interrogation per OR protocol, given location of surgery unlikely to interfere. Thank you for the consult, Colin Peterson MD [facility] Original Note: Date of Encounter: 06/11/18 Time of Encounter: 09:44 Assessment and Plan (1) Pre-op evaluation Current Visit: Yes Status: Acute RCRI is 2, mace 6.6% (hx of CAD and CVA) patient ECG is sinus rhythm with rate [address] elevation and depression and no changes from previous patient has pacemaker unclear of etiology and ECG does not show paced beats patient echo LVEF of 60-65 percent with moderate LV concentric hypertrophy, moderate LV diastolic dysfunction, without LV wall motion abnormalities patient is a intermediate risk (2) Acetabular fracture Current Visit: Yes Status: Acute Qualifiers: Encounter type: initial encounter Sublocation of acetabulum: unspecified portion of acetabulum Fracture type: closed Fracture alignment: nondisplaced Laterality: right Qualified Code(s): S32.401A - Unspecified fracture of right acetabulum, initial encounter for closed fracture (3) Femur fracture Current Visit: Yes Status: Acute Qualifiers: Encounter type: initial encounter Femur location: shaft Fracture type: closed Fracture morphology: unspecified fracture morphology Laterality: right Qualified Code(s): S72.301A - Unspecified fracture of shaft of right femur, initial encounter for closed fracture (4) Pubic ramus fracture Current Visit: Yes Status: Acute Qualifiers: Encounter type: initial encounter Fracture type: closed Laterality: right Qualified Code(s): S32.591A - Other specified fracture of right pubis, initial encounter for closed fracture (5) CAD (coronary artery disease) Current Visit: Yes Status: Chronic hx as stated above patient does not have chest pain continue aspirin. Qualifiers: Coronary Disease-Associated Artery/Lesion type: bypass graft [place] vs. transplanted heart: [place] heart Associated angina: angina presence unspecified Qualified Code(s): I25.810 - Atherosclerosis of coronary artery bypass graft(s) without angina pectoris Discussion w patient/family: The assessment and plan as outlined above was discussed with the patient and/or family members who expressed understanding and agreement. All questions were answered. Thank you for involving us in the care of your patient. Please call with any questions. History of Present Illness Consult date: 06/11/18 Consult reason: pre-op clearance Chief complaint: fall History of present illness: Ms. Childs is a 82 year old female with hx of dementia, HTN, CAD s/p Bypass x 2 (2004) and PCI (2008) presented from shelter after a fall yesterday night, unwitnessed and was found to have right displaced femur fracture, pubic symphysis fracture and possible nondisplaced acetabulur fracture. Cardiology was consulted for pre-op clearance. Hx obtained from daughter who is POA as patient is confused, alert to self only. Daughter denies patient ever complaining of chest pain. She does not have sob and does not use O2. She had CABG in 2004 and PCI in 2008 and since then has not had any cardiac events. She has never smoked in her life. Has not had any complications from surgeries previously. Last surgery was in 2013 for left hip fracture. Past Med Surg Social Fam HX - Past Medical History Medical history: DVT, dementia, diabetes, GERD, hyperlipidemia, hypertension, myocardial infarction, osteoporosis, pulmonary embolus, TIA Additional medical history: anemia, insomnia Psychiatric history: no psych history - Past Surgical History Surgical History: coronary bypass (CABG) Additional surgical history: multiple bowel surgeries - Social History Smoking Status: Never smoker Smokeless Tobacco Status: No Alcohol use: none Drug use: none - Family History Mother Living Status: Medications and Allergies Acetaminophen [Acetaminophen ER] 650 mg PO TID PRN 04/14/18 [History] Aspirin [Adult Aspirin] 81 mg PO DAILY 04/14/18 [History] Cholecalciferol (Vitamin D3) [Vitamin D] 2,000 unit PO DAILY 04/14/18 [History] Citalopram Hydrobromide [Citalopram HBr] 10 mg PO DAILY 04/14/18 [History] Cyanocobalamin (B-12) [Vitamin B12] 2,000 mcg PO DAILY 04/14/18 [History] Docusate Sodium [Dok] 100 mg PO DAILY 04/14/18 [History] Ondansetron ODT [Zofran ODT] 4 mg PO BID PRN 04/14/18 [History] OxyCODONE/APAP 5/325 [Percocet 5/325 MG] 1 each PO Q6HR PRN 3 Days #12 tablet 04/14/18 [Rx] Polyethylene Glycol 3350 [MiraLAX Powder Bulk 17.9 Oz] 1 scoop PO DAILY 04/14/18 [History] Allergy/AdvReac Type Severity Reaction Status Date / Time acetaminophen Allergy Mild Nausea Verified 07/23/17 11:20 atorvastatin Allergy Hives Verified 07/23/17 08:28 ceftriaxone Allergy Hives Verified 07/23/17 08:28 codeine Allergy Hypertensio Verified 07/23/17 08:28 n ROS unobtainable: due to mental status All Systems Review: The remainder of the systems were reviewed and are negative Physical Examination Vital Signs, Last 4 Hours Temp Pulse Resp BP Pulse Ox 06/11/18 07:18 98.0 F 72 15 95/56 100 General: Conversant, Other (agitated confused) HEENT: Atraumatic, Normocephaly, Mucus Membranes Moist Neck: No JVD, Normal carotid pulses Cardiac: Reg Rate and Rhythm, Normal S1 and S2, No Murmur Lungs: Normal Breath Sounds, No Wheeze, Rales, Rhonchi Neuro: Alert and responsive, No focal deficits noted, Other (only oriented to self ) Abdomen: Soft, Non-Tender Skin: No rashes noted on visualized skin Musculoskeletal: No Chest Wall Tenderness Extremities: No Clubbing, No Cyanosis, No Edema, Normal Pulses Results 06/11/18 05:35 06/11/18 05:35 Lab Results 06/10/18 06/10/18 06/11/18 10:38 10:38 05:35 WBC 13.4 H 7.4 Hgb 9.5 L 7.5 L D Hct 30.1 L 24.1 L Plt Count 175 125 L INR Sodium 137 Potassium 4.7 Chloride 99 Carbon Dioxide 26 BUN 34 H Creatinine 1.38 H Glucose 281 H Calcium 8.9 Magnesium 1.8 06/11/18 06/11/18 05:35 05:35 WBC Hgb Hct Plt Count INR 1.1 Sodium 139 Potassium 4.5 Chloride 106 Carbon Dioxide 28 BUN 35 H Creatinine 1.25 H Glucose 124 H Calcium 8.0 L Magnesium 1.8 Consult Discharge Plan - Plan Referrals: NONE,PCP [Primary Care Provider] -
--- NOTE | 2018-06-11 09:46 | Event Note ---
Date of Encounter: 06/11/18 Time of Encounter: 09:45 - Cardiology Event Note Patient/family denies chest pain. EKG shows no ischemia. TTE shows EF is normal. Acceptable intermediate CV risk for intermediate risk orthopaedic surgery. If able, continue aspirin. Pt hypotensive, unable to tolerate BB.
[2018-06-11] MEDS: OXYCODONE Oral CONC 10 MG/0.5 ML ORAL.SYG SL PRN (11:01)
[2018-06-11] MEDS ORDERED: *HR* FentaNYL (PF) 100 MCG/2 ML VIAL ONE (11:03)
[2018-06-11] MEDS ORDERED: Ondansetron 4 MG/2 ML VIAL ONE (11:03)
[2018-06-11] MEDS ORDERED: Lidocaine -MPF 2% 2 ML VIAL ONE (11:03)
[2018-06-11] MEDS ORDERED: *HR* Propofol 200 MG/20 ML VIAL IVP ONE (11:03)
[2018-06-11] MEDS ORDERED: Dexamethasone 4 MG/ML VIAL ONE (11:05)
[2018-06-11] MEDS ORDERED: *HR* Etomidate 40 MG/20 ML VIAL IVP ONE (11:48)
[2018-06-11] MEDS ORDERED: *HR* Promethazine 25 MG/ML VIAL IVP PRN ×2 (11:53→15:18)
[2018-06-11] MEDS ORDERED: *HR* HYDROmorphone (PF) 1 MG/ML SYRINGE IVP PRN ×2 (11:53→15:18)
[2018-06-11] MEDS ORDERED: *HR* OxyCODONE Immed Rel 5 MG TABLET PO PRN ×2 (11:53→15:18)
[2018-06-11] MEDS ORDERED: *HR* PHENYLEPHRINE 1,000 MCG/10 ML SYRINGE IVP ONE ×2 (11:55→13:29)
[2018-06-11] MEDS ORDERED: *HR* Vasopressin 20 UNIT/ML VIAL ONE (11:56)
[2018-06-11] MEDS ORDERED: Clindamycin 900 MG/50 ML 900 MG/50 ML IV.SOLN IVPB ONE ×2 (12:25→13:22)
[2018-06-11] MEDS ORDERED: Lidocaine -MPF 4% 5 ML AMPUL ONE (13:09)
[2018-06-11] MEDS ORDERED: *HR* Rocuronium Bromide 50 MG/5 ML VIAL ONE (13:12)
--- NOTE | 2018-06-11 13:15 | Orthopedic Operative Note ---
Date of procedure: 06/11/18 Pre-op diagnosis: Displaced right femoral shaft fracture Post-op diagnosis: same Procedure: Procedure: Right femur open reduction intramedullary nail fixation Estimated blood loss: 100 cc Hardware: Metal: 10 x 360 mm Synthes TFN, 80 mm helical blade, 56 mm distal locking bolt Procedural Notes: Patient is a nonambulator with a displaced femoral shaft fracture with concern for soft tissue compromise. Operative procedure: The patient was brought to the operating room and placed on the operating room table. After general anesthesia was administered the well leg was place in the well leg mckeon and the operative leg was placed in the fracture leg mckeon. All pressure points were padded appropriately. The operative extremity was prepped and draped in the sterile surgical fashion patient received IV antibiotic prior to skin incision. A standard direct lateral approach was made over the entry point of the greater trochanter, the incision was made through the skin and subcutaneous tissue hemostasis was obtained with Bovie cautery. Using careful sharp dissection the fascia was identified and incised, flouroscopic assistance was used to identify the entry point. The guidepin was placed at the entry point using fluroscopic assistance, it was over reamed with the proximal reamer. A beaded guidewire was placed through the entry point across the fracture site into the distal fragment. This was measured and a 10 mm x 360 mm trochanteric femoral nail was placed over the beaded guidewire across the fracture site into the distal fragment. This gave acceptable alignment of the fracture this nonambulator. A guide pin was placed through the proximal locking guide from the lateral femur through the nail across the fracture site into the femoral head, it was over reamed with the reamer. The 80 mm helical blade was placed over the guide pin through the nail into the femoral head, locked in place with the proximal locking bolt. Distal locking bolt was placed utilizing fluoroscopic assistance and standard AO techniques. The wound was irrigated. The hip was closed by the PA. Fascia was closed with a running #2 PDS suture. The deep tissue was irrigated and closed deep with #1 PDS suture superficially with 0 PDS suture and skin was closed with Dermabond. The patient was placed in a sterile dressing The patient was extubated and transferred to the recovery room in stable condition. Anesthesia: GETA Surgeon: Jalil Kenney Was there an orthodontic assistant present: No Estimated blood loss (cc): 100 Condition: stable Disposition: PACU
--- NOTE | 2018-06-11 14:46 | Anesthesia Evaluation Post Op ---
Date of Encounter: 06/11/18 Time of Encounter: 14:44 - Vital Signs Vital Signs: Vital Signs/O2 Sat/Glucose, Most Current Temp Pulse Resp BP Pulse Ox 06/11/18 14:34 80 14 111/43 100 06/11/18 14:24 83 14 112/75 98 06/11/18 14:14 98.4 F 82 14 95/43 100 06/11/18 14:04 71 12 127/49 100 06/11/18 13:54 75 10 130/53 100 06/11/18 13:44 97.6 F 78 8 132/58 100 06/11/18 10:45 97.9 F 63 14 106/53 95 - Lungs Lungs: Clear Ascult./Percussion - Airway Airway: Non-obstructed - Cardiovascular Regular Rate, Baseline Rhythm - Mental Status Mental Status: Confused, Baseline Status - Pain Pain Scale: 0 Pain Scale used: Numeric (1 - 10) - Nausea Vomiting Nausea Vomiting: Unable to assess - Hydration Hydration: NPO, Ramirez catheter - Discharge PostOp Status: Transfer Patient to floor
[2018-06-11 14:56] LABS: Hemoglobin 8.1 g/dL (11.5-15.4)
[2018-06-11] MEDS ORDERED: 0.9 % Sodium Chloride 1,000 ML IVC SCH (15:18)
[2018-06-11] MEDS ORDERED: Naloxone 0.4 MG/ML INJ IVP PRN ×2 (15:18)
[2018-06-11] MEDS ORDERED: Perflutren Lipid Microsphere 1.3 ML in 0.9 % Sodium Chloride 8.7 ML IVP ONE (15:18)
[2018-06-11] MEDS ORDERED: Clindamycin 900 MG/50 ML 900 MG/50 ML IV.SOLN IVPB SCH (16:00)
[2018-06-11] MEDS ORDERED: 0.9 % Sodium Chloride 250 ML ONE (18:35)
[2018-06-11] MEDS: Clindamycin 900 MG/50 ML 900 MG/50 ML IV.SOLN IVPB SCH (20:13)
--- NOTE | 2018-06-11 21:26 | Event Note ---
Date of Encounter: 06/11/18 Time of Encounter: 21:24 Notified by nurse of patient code status needing changed from full code post op, per Dr Romero's documentation under code status, status changed to [id number].
[2018-06-12] MEDS ORDERED: 0.9 % Sodium Chloride 1,000 ML IVC SCH (02:45)
[2018-06-12] MEDS: OXYCODONE Oral CONC 10 MG/0.5 ML ORAL.SYG SL PRN ×3 (02:50→20:05)
[2018-06-12 04:23] LABS: Basophils % 0.3 %; Hematocrit 27.6 % (35.3-44.9); Hemoglobin 8.8 g/dL (11.5-15.4); Immature Granulocytes % 0.7 % (0-4); Lymphocytes % 13.4 %; Mean Corpuscular HGB Conc 31.9 g/dL (31.6-35.5); Mean Corpuscular Hemoglobin 28.6 pg (28.0-33.3); Mean Corpuscular Volume 89.6 fL (83.0-100.0); Mean Platelet Volume 11.3 fL (9.4-12.4); Monocytes # 0.5 K/mcL (0.0-1.3); Monocytes % 7.1 %; Neutrophils # 5.7 K/mcL (1.6-8.9); Platelet Count 103 K/mcL (140-400); Red Blood Count 3.08 M/mcL (3.82-4.97); Red Cell Distribution Width 14.6 % (11.5-14.5); Segmented Neutrophils % 78.5 %
[2018-06-12] MEDS: Clindamycin 900 MG/50 ML 900 MG/50 ML IV.SOLN IVPB SCH (04:33)
[2018-06-12 04:42] LABS: BUN/Creatinine Ratio 36 (6-26); Blood Urea Nitrogen 36 mg/dL (8-23); Calcium 7.7 mg/dL (8.6-10.3); Carbon Dioxide 23 mEq/L (23-29); Chloride 111 mEq/L (98-107); Glucose 162 mg/dL (70-105); Osmolality,Calculated 304 (280-300); Potassium 4.7 mEq/L (3.5-5.1); Sodium 141 mEq/L (136-145); eGFR For Non-African Americans 53 (> 60)
[2018-06-12] MEDS: *HR* Heparin 5,000 UNIT/ML VIAL SQ SCH ×2 (06:50→18:02)
[2018-06-12] MEDS: Cholecalciferol (D-3) 1,000 UNIT TABLET PO SCH (07:59)
[2018-06-12] MEDS: Aspirin Enteric Coated 81 MG Tablet PO SCH (08:00)
[2018-06-12] MEDS: Cyanocobalamin (B-12) 1,000 MCG TABLET PO SCH (08:00)
--- NOTE | 2018-06-12 09:25 | Internal Med Progress Note ---
Hospitalist Progress Note - Encounter Date of Encounter: 06/12/18 Time of Encounter: 09:23 - Subjective Interval History: Patient seen and examined this morning. No acute overnight events. POD1 of Right femur open reduction intramedullary nail fixation. Patient is confused only oriented to self. Appears to have visual hallucination and paranoia. Cannot offer coherent complain. c/o pain everywhere. No eating much food per nurse. - Exam Vitals: Temp Pulse Resp BP Pulse Ox 97.6 F 71 18 102/62 94 06/12/18 07:12 06/12/18 07:12 06/12/18 07:12 06/12/18 07:12 06/12/18 07:51 Exam: General: Alert and oriented to self . Cardiovascular: Normal S1 & S2. Soft ejection systolic murmur. No JVD. Pulse regular. 1+ edema on Rt LE Lungs: clear to auscultation, no wheezes/rales Abdomen:Soft, non-tender, BS present Extremities: Rt Leg brace present. Painful range of motion. Neurovascular intact distally Neurological: grossly nonfocal. Pulses: Carotid and radial pulses normal +2. Pysch: confused, apprehensive and paranoid. Has visual hallucinations. - Assessment and Plan (1) Femur fracture Current Visit: Yes Status: Acute (2) Acetabular fracture Current Visit: Yes Status: Acute (3) Pubic ramus fracture Current Visit: Yes Status: Acute (4) CAD (coronary artery disease) Current Visit: Yes Status: Chronic (5) NICOLAS (acute kidney injury) Current Visit: Yes Status: Acute (6) Leukocytosis Current Visit: Yes Status: Acute (7) Pre-op evaluation Current Visit: Yes Status: Acute (8) DVT prophylaxis Current Visit: Yes Status: Acute - Summary of Assessment and Plan Summary of Assessment and Plan: Femur fracture/Pubic ramus/acetabular fracture - POD1 right femur open reduction intramedullary nail fixation per orthopedics - Hemodynamically stable - c/w current Pain control regimen. On bowel regimen. - Ortho followin. - PT/OT consulted. Ambulation per ortho. Delirium - On baseline dementia. Possible related to pain, acute medical issues. - Will control pain better - Keep patient oriented. - Will dc promethazine due to anticholinergic effect. Anemia - admitted with 9.5(around baseline this year). now 7.5. Likely related to rehydration - s/p 2 PRBC with appropriate response - Monitor for now. NICOLAS - Cr 1.38, baseline 0.9-1.0 - elevated CK of 454 - Likely prerenal vs toxin mediated - Improving with IVF and PRBC. - c/w IVF for now given decreased PO intake CAD - c/w aspirin. Not started on BB due to low BP. - ECHO with Ef 60-65, mod LVH, mild PHTN, Mod diastolic dysfunction. Leukocytosis - Likely reactive - now resolved - CXR unremarkable - Urinalysis abnormal but poor sample. - Will hold of antibiotics for now. Thrombocytopenia - Decreased compared to admission - May be related to hydration and PRBC - Monitor for now. - Will consider stopping heparin if continues to worsen. DVT prophylaxis - c/w SQ heparin - Time Spent with Patient Total time spent is greater than 50% in coordination of care (as documented) at patient's floor/unit and/or counseling patient: Internal Medicine: Result - Labs CBC & Chem 7: 06/12/18 03:57 06/12/18 03:57 Labs: Short CBC 06/11/18 06/12/18 Range/Units 12:22 03:57 WBC 7.3 (4.3-11.1) K/mcL Hgb 8.1 L 8.8 L (11.5-15.4) g/dL Hct 26.0 L 27.6 L (35.3-44.9) % Plt Count 103 L (140-400) K/mcL Neutrophils # 5.7 (1.6-8.9) K/mcL BMP 06/12/18 03:57 Sodium 141 Potassium 4.7 Chloride 111 H Carbon Dioxide 23 BUN 36 H Creatinine 1.00 Glucose 162 H Calcium 7.7 L - ABG Interpretation ABG results: PT/INR, D-dimer PT 12.3 Seconds (9.4-12.1) H 06/11/18 05:35 - Impressions Impressions Echocardiogram 06/10/18 13:53 Impressions: LVEF 60-65%. Moderate concentric left ventricular hypertrophy. Atypical septal motion consistent with post-operative status. Moderate left ventricular diastolic dysfunction. Mildly dilated right ventricle with moderate right ventricular hypokinesis. Mildly sclerotic aortic valve leaflets. No aortic stenosis Mild-moderate aortic regurgitation. Mild pulmonary hypertension. Moderate tricuspid regurgitation. A device lead was visualized in the right atrium and right ventricle. Left Ventricular Wall Motion: Rest Echo Findings All wall segments showed normal motion. Findings: Study Quality * Technically adequate exam. ECG Findings * Normal sinus rhythm. Left Ventricle * Moderate concentric left ventricular hypertrophy. * Atypical septal motion consistent with post-operative status. * There is no LV thrombus. * Definity echo contrast was used. * Moderate left ventricular diastolic dysfunction. * LVEF 60-65%. Right Ventricle * Moderate right ventricular hypokinesis. * Mildly dilated right ventricle. Left Atrium * Normal left atrial size. Right Atrium * Normal right atrial size. Interatrial Septum * No evidence of PFO by color Doppler. Aortic Valve * Trileaflet aortic valve. * Mildly sclerotic aortic valve leaflets. * Mild-moderate aortic regurgitation. * No aortic stenosis. Mitral Valve * Mild mitral regurgitation. * No mitral stenosis. * Normal mitral valve structure. Tricuspid Valve * Moderate tricuspid regurgitation. * Normal tricuspid valve structure. * No tricuspid stenosis. * Estimated RVSP is 29 mmHg. * Estimated RA pressure is 8 mmHg. * Mild pulmonary hypertension. Pulmonic Valve * No pulmonic regurgitation. * Normal pulmonic valve structure. Aorta * Normally sized aortic root. Pericardium * The pericardium appears normal. IVC * The IVC is not well evaluated. Device lead * A device lead was visualized in the right atrium and right ventricle. Femur X-Ray 06/11/18 00:00 IMPRESSION: Intraprocedural fluoroscopic spot images as above. See separate procedure report for more information. D/ / Alexander Melendez MD / Alexander Melendez MD Interpreting Provider: Alexander Melendez MD Fluoroscopy 06/11/18 00:00 IMPRESSION: Intraprocedural fluoroscopic spot images as above. See separate procedure report for more information. D/ / Alexander Melendez MD / Alexander Melendez MD Interpreting Provider: Alexander Melendez MD Consult Discharge Plan - Plan Referrals: NONE,PCP [Primary Care Provider] - (1) Femur fracture Qualifiers: Encounter type: initial encounter Femur location: shaft Fracture type: closed Fracture morphology: unspecified fracture morphology Laterality: right Qualified Code(s): S72.301A - Unspecified fracture of shaft of right femur, initial encounter for closed fracture (2) Acetabular fracture Qualifiers: Encounter type: initial encounter Sublocation of acetabulum: unspecified portion of acetabulum Fracture type: closed Fracture alignment: nondisplaced Laterality: right Qualified Code(s): S32.401A - Unspecified fracture of right acetabulum, initial encounter for closed fracture (3) Pubic ramus fracture Qualifiers: Encounter type: initial encounter Fracture type: closed Laterality: right Qualified Code(s): S32.591A - Other specified fracture of right pubis, initial encounter for closed fracture (4) CAD (coronary artery disease) Qualifiers: Coronary Disease-Associated Artery/Lesion type: bypass graft [place] vs. transplanted heart: [place] heart Associated angina: angina presence unspecified Qualified Code(s): I25.810 - Atherosclerosis of coronary artery bypass graft(s) without angina pectoris (6) Leukocytosis Qualifiers: Leukocytosis type: unspecified Qualified Code(s): D72.829 - Elevated white blood cell count, unspecified
--- NOTE | 2018-06-12 14:38 | Orthopedics Progress Note ---
Date of Encounter: 06/12/18 Time of Encounter: 14:37 Subjective Interval history: Patient was seen this morning doing well without complaints. Afebrile vital signs stable. Operative extremity: Neurovascularly intact Dressing clean dry and intact Calves nontender Assessment and plan: Continue with postoperative care Hematocrit 27 discharged tomorrow Objective Vital signs: Vital Signs Temp Pulse Resp BP Pulse Ox 06/12/18 11:27 97.5 F L 83 18 105/64 96 06/12/18 07:51 94 06/12/18 07:12 97.6 F 71 18 102/62 96 06/12/18 02:51 98.3 F 71 16 112/55 98 06/11/18 23:26 98.7 F 68 16 114/57 06/11/18 21:53 98.6 F 67 12 118/69 99 06/11/18 19:07 97.4 F L 78 16 108/56 98 06/11/18 18:52 97.9 F 80 16 110/58 99 06/11/18 17:15 98.1 F 68 16 102/65 98 06/11/18 16:45 98.1 F 73 16 93/49 98 06/11/18 15:30 98.1 F 73 16 99/48 97 06/11/18 15:16 98.2 F 78 16 104/47 96 06/11/18 14:44 97.9 F 76 16 103/52 99 Intake and Output 06/11/18 06/12/18 06/12/18 23:59 07:59 15:59 Intake Total 362 / 362 220 / 220 Output Total 100 / 100 175 / 175 Balance 262 / 262 -175 / -175 220 / 220 Intake: IV Fluids 50 / 50 Cleocin Premix 900 MG/50 ML 900 50 / 50 mg In 50 ml @ 50 mls/hr IVPB Q[facility]H [facility] Rx#:[id number] Oral 25 / 25 220 / 220 Blood Product 287 / 287 Rbcs Leuko Poor As-1 Unit 287 / 287 [id number] Output: Catheter 100 / 100 175 / 175 Other: Meal Breakfast Percent of Meal Consumed 5% Blood Glucose* 156 141 151 - Labs CBC & BMP: 06/12/18 03:57 06/12/18 03:57 Labs: Abnormal lab results RBC 3.08 M/mcL (3.82-4.97) L 06/12/18 03:57 Hgb 8.8 g/dL (11.5-15.4) L 06/12/18 03:57 Hct 27.6 % (35.3-44.9) L 06/12/18 03:57 RDW 14.6 % (11.5-14.5) H 06/12/18 03:57 Plt Count 103 K/mcL (140-400) L 06/12/18 03:57 PT 12.3 Seconds (9.4-12.1) H 06/11/18 05:35 Chloride 111 mEq/L (98-107) H 06/12/18 03:57 BUN 36 mg/dL (8-23) H 06/12/18 03:57 Est GFR (Non-Af Amer) 53 (> 60) L 06/12/18 03:57 BUN/Creatinine Ratio 36 (6-26) H 06/12/18 03:57 Glucose 162 mg/dL (70-105) H 06/12/18 03:57 POC Glucose 151 mg/dL (70-99) H 06/12/18 11:35 Calculated Osmolality 304 (280-300) H 06/12/18 03:57 Calcium 7.7 mg/dL (8.6-10.3) L 06/12/18 03:57 Creatine Kinase 454 Units/L (30-223) H 06/10/18 10:38 Urine Clarity Cloudy (Clear) A 06/11/18 02:15 Urine Protein 30 mg/dL (Neg-Trace) H 06/11/18 02:15 Urine Bilirubin Small (Negative) H 06/11/18 02:15 Urine Microscopic RBC 3-5 per hpf (0-3) H 06/11/18 02:15 Urine Microscopic WBC 5-15 per hpf (0-3) H 06/11/18 02:15 Ur Squamous Epith Cells Many per lpf (None-Few) H 06/11/18 02:15 Urine Bacteria Moderate per hpf (None-Few) H 06/11/18 02:15 Urine Yeast Many per hpf (None Seen) H 06/11/18 02:15 Consult Discharge Plan - Plan Referrals: NONE,PCP [Primary Care Provider] -
[2018-06-12] MEDS: Ringers Solution, Lactated 1,000 ML IVC SCH (18:02)
[2018-06-13] MEDS: *HR* Heparin 5,000 UNIT/ML VIAL SQ SCH (05:44)
[2018-06-13] MEDS: OXYCODONE Oral CONC 10 MG/0.5 ML ORAL.SYG SL PRN (05:45)
[2018-06-13] MEDS: Ringers Solution, Lactated 1,000 ML IVC SCH (07:35)
[2018-06-13 08:01] LABS: Basophils % 0.2 %; Eosinophils # 0.1 K/mcL (0.0-0.6); Eosinophils % 1.5 %; Hematocrit 25.8 % (35.3-44.9); Hemoglobin 8.3 g/dL (11.5-15.4); Immature Granulocytes % 0.6 % (0-4); Lymphocytes # 2.3 K/mcL (0.6-4.6); Lymphocytes % 28.2 %; Mean Corpuscular HGB Conc 32.2 g/dL (31.6-35.5); Mean Corpuscular Hemoglobin 28.7 pg (28.0-33.3); Mean Corpuscular Volume 89.3 fL (83.0-100.0); Mean Platelet Volume 11.9 fL (9.4-12.4); Monocytes # 0.8 K/mcL (0.0-1.3); Monocytes % 10.1 %; Neutrophils # 4.8 K/mcL (1.6-8.9); Platelet Count 106 K/mcL (140-400); Red Blood Count 2.89 M/mcL (3.82-4.97); Red Cell Distribution Width 14.9 % (11.5-14.5); Segmented Neutrophils % 59.4 %
[2018-06-13] MEDS: Aspirin Enteric Coated 81 MG Tablet PO SCH (09:36)
[2018-06-13] MEDS: Cyanocobalamin (B-12) 1,000 MCG TABLET PO SCH (09:37)
[2018-06-13] MEDS: Cholecalciferol (D-3) 1,000 UNIT TABLET PO SCH (10:26)
--- NOTE | 2018-06-13 10:55 | Orthopedics Progress Note ---
Date of Encounter: 06/13/18 Time of Encounter: 10:55 Subjective Interval history: Patient was seen this morning doing well without complaints. Afebrile vital signs stable. Operative extremity: Neurovascularly intact Dressing clean dry and intact Calves nontender Assessment and plan: Continue with postoperative care Objective Vital signs: Vital Signs Temp Pulse Resp BP Pulse Ox 06/13/18 07:36 98.6 F 73 14 107/60 97 06/13/18 04:17 98.3 F 68 16 146/72 95 06/12/18 23:37 98.8 F 68 16 100/60 98 06/12/18 18:21 98.7 F 75 16 108/63 99 06/12/18 16:20 97.6 F 75 14 108/71 98 06/12/18 11:27 97.5 F L 83 18 105/64 96 Intake and Output 06/12/18 06/13/18 06/13/18 23:59 07:59 15:59 Intake Total 1000 / 1000 Output Total 325 / 325 Balance 675 / 675 Intake: IV Fluids 1000 / 1000 Lactated Ringers 1,000 ML @ 75 1000 / 1000 mls/hr IVC .[id number] [facility] Rx#: [id number] Output: Catheter 325 / 325 Other: Meal Breakfast Percent of Meal Consumed 0% Weight 56.6 kg Blood Glucose* 171 99 Patient Weight 06/13/18 23:59 Weight 56.6 kg - Labs CBC & BMP: 06/13/18 06:43 06/12/18 03:57 Labs: Abnormal lab results RBC 2.89 M/mcL (3.82-4.97) L 06/13/18 06:43 Hgb 8.3 g/dL (11.5-15.4) L 06/13/18 06:43 Hct 25.8 % (35.3-44.9) L 06/13/18 06:43 RDW 14.9 % (11.5-14.5) H 06/13/18 06:43 Plt Count 106 K/mcL (140-400) L 06/13/18 06:43 PT 12.3 Seconds (9.4-12.1) H 06/11/18 05:35 Chloride 111 mEq/L (98-107) H 06/12/18 03:57 BUN 36 mg/dL (8-23) H 06/12/18 03:57 Est GFR (Non-Af Amer) 53 (> 60) L 06/12/18 03:57 BUN/Creatinine Ratio 36 (6-26) H 06/12/18 03:57 Glucose 162 mg/dL (70-105) H 06/12/18 03:57 POC Glucose 171 mg/dL (70-99) H 06/12/18 20:04 Calculated Osmolality 304 (280-300) H 06/12/18 03:57 Calcium 7.7 mg/dL (8.6-10.3) L 06/12/18 03:57 Creatine Kinase 454 Units/L (30-223) H 06/10/18 10:38 Urine Clarity Cloudy (Clear) A 06/11/18 02:15 Urine Protein 30 mg/dL (Neg-Trace) H 06/11/18 02:15 Urine Bilirubin Small (Negative) H 06/11/18 02:15 Urine Microscopic RBC 3-5 per hpf (0-3) H 06/11/18 02:15 Urine Microscopic WBC 5-15 per hpf (0-3) H 06/11/18 02:15 Ur Squamous Epith Cells Many per lpf (None-Few) H 06/11/18 02:15 Urine Bacteria Moderate per hpf (None-Few) H 06/11/18 02:15 Urine Yeast Many per hpf (None Seen) H 06/11/18 02:15 Consult Discharge Plan - Plan Referrals: NONE,PCP [Primary Care Provider] -
--- NOTE | 2018-06-13 11:33 | Discharge Summary ---
- NOTES TO OUTPATIENT PROVIDER Notes to Outpatient Provider: Follow-up patient's hemoglobin. Was discharged on Ramirez. Should get voiding trial when more alert and mobile. Orders not resulted at time of discharge: Pending orders 06/11/18 12:22 XR femur RT [XR] Routine Date of Encounter: 06/13/18 Time of Encounter: 11:16 - Discharge Diagnosis (1) Femur fracture Priority: Primary Status: Acute Qualifiers: Encounter type: initial encounter Femur location: shaft Fracture type: closed Fracture morphology: unspecified fracture morphology Laterality: right Qualified Code(s): S72.301A - Unspecified fracture of shaft of right femur, initial encounter for closed fracture (2) Acetabular fracture Priority: Primary Status: Acute Qualifiers: Encounter type: initial encounter Sublocation of acetabulum: unspecified portion of acetabulum Fracture type: closed Fracture alignment: nondisplaced Laterality: right Qualified Code(s): S32.401A - Unspecified fracture of right acetabulum, initial encounter for closed fracture (3) Pubic ramus fracture Priority: Primary Status: Acute Qualifiers: Encounter type: initial encounter Fracture type: closed Laterality: right Qualified Code(s): S32.591A - Other specified fracture of right pubis, initial encounter for closed fracture (4) CAD (coronary artery disease) Priority: Secondary Status: Chronic Qualifiers: Coronary Disease-Associated Artery/Lesion type: bypass graft [place] vs. transplanted heart: [place] heart Associated angina: angina presence unspecified Qualified Code(s): I25.810 - Atherosclerosis of coronary artery bypass graft(s) without angina pectoris (5) NICOLAS (acute kidney injury) Priority: Primary Status: Acute (6) Leukocytosis Priority: Primary Status: Acute Qualifiers: Leukocytosis type: unspecified Qualified Code(s): D72.829 - Elevated white blood cell count, unspecified (7) Pre-op evaluation Priority: Secondary Status: Acute (8) DVT prophylaxis Priority: Secondary Status: Acute Hospital course: Ms. Childs is a 82 year old female with past medical history of dementia, CVA, CAD came after a fall was found to have a Rt femur fracture. Orthopedics was consulted. Cardiology evaluated preoperatively with intermediate CV risk for intermediate surgery. Patient had intramedullary nailing on 06/11/18. Patient needed 2 units of blood transfusion postoperatively. Her hemoglobin remained stable afterwards. Patient was on and off delirious due to multiple reasons including dementia, CVA and postoperative with pain. Patient also had initially [place] I which was managed with Ramirez catheter and IV fluids and improved during her stay to her baseline. Physical therapy is recommended postoperatively for rehabilitation. Patient will be discharged to SNF. Patient will get aspirin 162 twice a day for 10 days for DVT prophylaxis. To stop home baby aspirin meanwhile. Patient had some thrombocytopenia which was stable and likely dilutional. Unlikely to be HIT due to 4T score of 2. Heparin will be discontinued on discharge. Would be discharged with Ramirez to try a voiding trial when more alert and mobile. - Time Spent with Patient Total time spent providing and/or coordinating discharge services: Greater than 30 minutes (36) - Discharge Medications Prescriptions: OxyCODONE/APAP 5/325 [Percocet 5/325 MG] 1 each PO Q6HR PRN 3 Days #12 tablet PRN Reason: Pain Aspirin Enteric Coated [Aspirin EC] 162 mg PO BID 10 Days #20 tablet.dr Alba Medications: Acetaminophen [Acetaminophen ER] 650 mg PO TID PRN 04/14/18 [History] Aspirin [Adult Aspirin] 81 mg PO DAILY 04/14/18 [History] Cholecalciferol (Vitamin D3) [Vitamin D3] 2,000 unit PO DAILY 04/14/18 [History] Citalopram Hydrobromide [Citalopram HBr] 10 mg PO DAILY 04/14/18 [History] Cyanocobalamin (B-12) [Vitamin B12] 2,000 mcg PO DAILY 04/14/18 [History] Docusate Sodium [Dok] 100 mg PO DAILY 04/14/18 [History] Ondansetron ODT [Zofran ODT] 4 mg PO BID PRN 04/14/18 [History] Polyethylene Glycol 3350 [MiraLAX Powder Bulk 17.9 Oz] 1 scoop PO DAILY 04/14/18 [History] Aspirin Enteric Coated [Aspirin EC] 162 mg PO BID 10 Days #20 tablet. 06/13/18 [Rx] OxyCODONE/APAP 5/325 [Percocet 5/325 MG] 1 each PO Q6HR PRN 3 Days #12 tablet 06/13/18 [Rx] Allergies/Adverse Reactions: Allergy/AdvReac Type Severity Reaction Status Date / Time acetaminophen Allergy Mild Nausea Verified 01/08/18 11:20 atorvastatin Allergy Hives Verified 07/23/17 08:28 ceftriaxone Allergy Hives Verified 07/23/17 08:28 codeine Allergy Hypertensio Verified 07/23/17 08:28 n Date of admission: 06/10/18 14:18 Primary care physician: PCP NONE Consults: 06/10/18 13:22 Consult to Orthopedic Surgery [CONS] Stat Consulting Provider: [facility] Reason for Consult: RIGHT femure fracture Call Completed: Yes 06/10/18 14:18 Consult to Cardiology [CONS] Stat Comment: Consulting Provider: [facility] Reason for Consult: Pre-op risk assessment, history of CAD, NM, Open heart surgery Time Notified: 14:19 Call Completed: Yes 06/10/18 16:58 Consult to Nutrition [CONS] Routine Comment: Consulting Provider: NUTRITION Reason for Dietary Consult: MST Score Consult to Pastoral Services [CONS] Routine Comment: 06/11/18 15:18 Consult to Orthopedic Navigator [CONS] [CONS] Routine 06/12/18 07:47 Consult to Occupational Therapy [CONS] Routine Comment: Evaluate, develop and implement POC Reason for Consult: Post surgical IM nailing Does patient have active BEDREST order?: No Is patient medically & hemodynamically stable?: Yes Patient assessed for mobility or mobilized this visit?: Yes Consult to Physical Therapy [CONS] Routine Comment: Evaluate, develop and implement POC Reason for Consult: Post surgical IM nailing Does patient have active BEDREST order?: No Is patient medically & hemodynamically stable?: Yes Patient assessed for mobility or mobilized this visit?: Yes Discharging clinician: Marlene Arriaza - Constitutional Vitals: Temp Pulse Resp BP Pulse Ox 98.4 F 78 16 109/67 95 06/13/18 10:00 06/13/18 10:00 06/13/18 10:00 06/13/18 10:00 06/13/18 10:00 Exam: General: Alert and oriented to self . Cardiovascular: Normal S1 & S2. Soft ejection systolic murmur. No JVD. Pulse regular. 1+ edema on Rt LE Lungs: clear to auscultation, no wheezes/rales Abdomen:Soft, non-tender, BS present Extremities: Rt Leg brace present. Painful range of motion. Neurovascular intact distally Neurological: grossly nonfocal. Pulses: Carotid and radial pulses normal +2. Pysch: confused, apprehensive and paranoid. - Patient Status Disposition: Transfer SNF Condition: Fair - Discharge Instructions Follow Up With: NONE,PCP [Primary Care Provider] - - Diet and Activity Activity: as per physical therapy
--- NOTE | 2018-06-13 12:11 | Physician Discharge Referral ---
ExtendedCare Referral Info Institutional Level of Care: Skilled - Diagnosis (1) Femur fracture Status: Acute (2) Acetabular fracture Status: Acute (3) Pubic ramus fracture Status: Acute (4) CAD (coronary artery disease) Status: Chronic (5) NICOLAS (acute kidney injury) Status: Acute (6) Leukocytosis Status: Acute (7) Pre-op evaluation Status: Acute (8) DVT prophylaxis Status: Acute - Transfer Medications Prescriptions: OxyCODONE/APAP 5/325 [Percocet 5/325 MG] 1 each PO Q6HR PRN 3 Days #12 tablet PRN Reason: Pain Aspirin Enteric Coated [Aspirin EC] 162 mg PO BID 10 Days #20 tablet. Home Medications: Acetaminophen [Acetaminophen ER] 650 mg PO TID PRN 04/14/18 [History] Aspirin [Adult Aspirin] 81 mg PO DAILY 04/14/18 [History] Cholecalciferol (Vitamin D3) [Vitamin D3] 2,000 unit PO DAILY 04/14/18 [History] Citalopram Hydrobromide [Citalopram HBr] 10 mg PO DAILY 04/14/18 [History] Cyanocobalamin (B-12) [Vitamin B12] 2,000 mcg PO DAILY 04/14/18 [History] Docusate Sodium [Dok] 100 mg PO DAILY 04/14/18 [History] Ondansetron ODT [Zofran ODT] 4 mg PO BID PRN 04/14/18 [History] Polyethylene Glycol 3350 [MiraLAX Powder Bulk 17.9 Oz] 1 scoop PO DAILY 04/14/18 [History] Aspirin Enteric Coated [Aspirin EC] 162 mg PO BID 10 Days #20 tablet. 06/13/18 [Rx] OxyCODONE/APAP 5/325 [Percocet 5/325 MG] 1 each PO Q6HR PRN 3 Days #12 tablet 06/13/18 [Rx] Allergies/Adverse Reactions: Allergy/AdvReac Type Severity Reaction Status Date / Time acetaminophen Allergy Mild Nausea Verified 07/23/17 11:20 atorvastatin Allergy Hives Verified 07/23/17 08:28 ceftriaxone Allergy Hives Verified 07/23/17 08:28 codeine Allergy Hypertensio Verified 07/23/17 08:28 n - Respiratory Orders Smoking Cessation: Smoking cessation has been advised. For more information, call the [place] Tobacco Quit Line at 1-530-KVHT-NOW. - Advance Directives Code Status: DNR-Comfort Care - Rehabiliation Orders Rehab Orders: Evaluation for Physical Therapy CERTIFICATION: I certify that the transfer of the above named patient to an Extended Care Facility is necessary for the continuing treatment of the diagnosis listed. The above information is true and accurate reflection of patient's current condition. Confidential - Redisclosure prohibited without a patient's written consent.
[2018-06-13 14:20] VITALS: BP 105/59
== END 2018-06-13 14:54 | DRG 956 ==
LOC: EMEROOARM 10:27 → 3ANU 14:18 → SUATTDRO 14:18 → 3ANU 15:35 → 3NENU 06-11 13:52
PROVIDERS: ADMIT Hospitalist; ATTEND Internal Medicine